=== PATIENT | male | born 1970 | race Caucasian/White ===

== ENCOUNTER 2017-01-21 16:02 | Emergency (ER) | payer OTHER ==
[~2017-01-21] VITALS: Ht 167.6 cm; Wt 75.0 kg
[~2017-01-21 16:02] MED LIST: BACT2OIN TOP; FOLI1 PO; LORTA5 PO; MULT-65 PO; THIA100T PO; ZOLP10TA3 PO
[2017-01-21 16:03] VITALS: BP 125/89; PULSE 101; RESP 15; TEMP 98.1; O2SAT 99
[2017-01-21] MEDS ORDERED: HYDR-4107 PO (16:27)
[2017-01-21] MEDS ORDERED: ZOLP10TA3 PO (16:27)
[2017-01-21] MEDS ORDERED: MULT-65 PO (16:27)
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
[2017-01-21] MEDS ORDERED: PROCHLORPERAZINE MALEATE 10 MG TAB PO ONE (16:30)
[2017-01-21] MEDS ORDERED: diphenhydrAMINE HCL 50 MG CAP PO ONE (16:30)
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
== END 2017-01-21 17:31 | disposition home or self-care (01) ==
LOC: NEPD 16:02
DX: G44.309 Post-traumatic headache, unspecified, not intractable (principal)
CPT/HCPCS: 70450; 72125; 99284; Q0163; Q0164

== ENCOUNTER 2017-12-10 11:57 | Inpatient (IN) | payer SELFPAY ==
[2017-12-10] VITALS (15 sets, daily range): BP systolic 132–178; BP diastolic 76–110; PULSE 93–113; RESP 14–32; TEMP 97.8–98; O2SAT 92–100
[~2017-12-10] VITALS: Ht 170.2 cm; Wt 78.0 kg
[~2017-12-10 11:57] MED LIST changes: -BACT2OIN TOP; +CHLO10CA5 PO; -FOLI1 PO; +FOLI1TAB6 PO; +HYDR-4107 PO; -LORTA5 PO; +POTA1TAB4 PO; +THIA100 PO; -THIA100T PO
[2017-12-10] MEDS ORDERED: SODIUM CHLOR 0.9% 1000 ML INJ 1,000 ML IV SCH (13:13)
[2017-12-10] MEDS: FAMOTIDINE 20 MG/2 ML VIAL IV PUSH ONE ×2 (13:15→13:32)
[2017-12-10] MEDS ORDERED: ONDANSETRON HCL 4 MG/2 ML VIAL IVP ONE (13:15)
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
[2017-12-10 13:31] LABS: AUTOMATED NEUTROPHIL # 5.6 TH/MM3 (1.8-7.7); BASOPHIL # 0.1 TH/MM3 (0-0.2); BASOPHIL % 0.9 % (0.0-2.0); EOSINOPHIL # 0.1 TH/MM3 (0-0.4); EOSINOPHIL % 1.3 % (0.0-4.0); HEMATOCRIT 37.3 % (39.0-51.0); LYMPH % 17.2 % (9.0-44.0); LYMPHOCYTE # 1.4 TH/MM3 (1.0-4.8); MEAN CELL VOLUME 80.3 FL (80.0-100.0); MEAN CORPUSCULAR HEMOGLOBIN 25.8 PG (27.0-34.0); MEAN CORPUSCULAR HGB CONC 32.2 % (32.0-36.0); MEAN PLATELET VOLUME 6.9 FL (7.0-11.0); MONO % 11.1 % (0.0-8.0); MONOCYTE # 0.9 TH/MM3 (0-0.9); NEUT % 69.5 % (16.0-70.0); PLATELET COUNT 216 TH/MM3 (150-450); RED BLOOD COUNT 4.65 MIL/MM3 (4.50-5.90); RED CELL DISTRIBUTION WIDTH 19.7 % (11.6-17.2)
[2017-12-10] MEDS: SODIUM CHLORIDE 0.9% FLUSH 10 ML FLUSH IV FLUSH PRN ×2 (13:31→16:49)
[2017-12-10 13:37] LABS: BILIRUBIN, URINE NEG (NEG); BLOOD, URINE NEG (NEG); GLUCOSE,URINE NEG (NEG); KETONE, URINE NEG (NEG); NITRITE,URINE NEG (NEG); URINE COLOR LIGHT-YELLOW (YELLW/STRAW); URINE LEUKOCYTE ESTERASE NEG (NEG)
[2017-12-10] MEDS ORDERED: LIDOCAINE HCL 1% PF 30 ML VIAL ONE (13:41)
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
[2017-12-10 13:43] LABS: INTERNATIONAL NORMALIZED RATIO 1.1 RATIO; PROTHROMBIN TIME - PATIENT 11.1 SEC (9.8-11.6)
[2017-12-10] MEDS ORDERED: LIDOCAINE HCL 1% 50 ML VIAL INFIL ONE (13:45)
[2017-12-10] MEDS ORDERED: MORPHINE SULFATE 4 MG/ML INJ IV PUSH ONE ×2 (13:45→15:00)
[2017-12-10 13:47] LABS: ALBUMIN 4.2 GM/DL (3.4-5.0); ALT (GPT) 72 U/L (12-78); AST (GOT) 125 U/L (15-37); BLOOD UREA NITROGEN 4 MG/DL (7-18); CALCIUM 8.7 MG/DL (8.5-10.1); CHLORIDE 105 MEQ/L (98-107); CREATININE 0.81 MG/DL (0.60-1.30); GLOMERULAR FILTRATION RATE 102 ML/MIN (>89); GLUCOSE,RANDOM 108 MG/DL (74-106); SODIUM (NA) 142 MEQ/L (136-145)
[2017-12-10 13:50] LABS: ALKALINE PHOSPHATASE 142 U/L (45-117); TOTAL BILIRUBIN ADULT 0.4 MG/DL (0.2-1.0); TOTAL PROTEIN 8.6 GM/DL (6.4-8.2)
[2017-12-10] MEDS ORDERED: MIDAZOLAM HCL 2 MG/2 ML VIAL IV PUSH ONE (14:00)
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
[2017-12-10] MEDS ORDERED: IOHEXOL 350 MG/ML 10 ML VIAL (for RAD DIAG) IVCONTRAST ONE (15:11)
--- NOTE | 2017-12-10 15:16 | RADRPT ---
EXAM DATE/TIME: 12/10/2017 14:30 [facility] COMPARISON: RIBS RIGHT(W PA CXR MIN 3VWS), December 10, 2017, 13:23. INDICATIONS : Post chest tube placement. MEDICAL HISTORY : None. SURGICAL HISTORY : None. ENCOUNTER: Subsequent ACUITY: 1 day PAIN SCORE: 8/10 LOCATION: Bilateral chest FINDINGS: The exam demonstrates a large bore chest tube in place on the right. There has been reinflation of th e right lung. The heart is normal in size. The left lung is clear. There are multiple old rib fracture seen on the right. There is possible acute rib fracture involving the right seventh posterior rib. CONCLUSION: 1. Interval placement of a right-sided chest tube with reinflation of the right lung. Son Finch MD on December 10, 2017 at 14:55 Board Certified Radiologist. This report was verified electronically.
--- NOTE | 2017-12-10 15:25 | RADRPT ---
EXAM DATE/TIME: 12/10/2017 15:05 [facility] COMPARISON: CT ABDOMEN & PELVIS W CONTRAST, October 21, 2017, 22:52. INDICATIONS : Right upper quadrant pain. IV CONTRAST: 100 cc Omnipaque 350 (iohexol) IV ORAL CONTRAST: No oral contrast ingested. RADIATION DOSE: 6.97 CTDIvol (mGy) MEDICAL HISTORY : Hypertension. Gastroesophageal reflux disease. Cardiovascular disease SURGICAL HISTORY : Appendectomy. Right chest tube. ENCOUNTER: Initial ACUITY: 1 day PAIN SCALE: 9/10 LOCATION: Right upper quadrant TECHNIQUE: Volumetric scanning of the abdomen and pelvis was performed. Using automated exposure control and adjustment of the mA and/or kV according to patient size, radiation dose was kept as low as reasonably achievable to obtain optimal diagnostic quality images. DICOM format image data is av ailable electronically for review and comparison. FINDINGS: Chest tube is entering on the right with trace right pneumothorax and subcutaneous emphysema present. Minimal consolidation right base with trace pleural effusion Multiple right rib fractures are noted. The liver is free of focal defects. Moderate fatty replacement is evident. Multiple small gallstones are noted Gallbladder and pancreas are unremarkable Adrenal glands appear normal There is symmetrical renal function There is no free fluid or free air Pelvic contents are unremarkable Review of bone windows reveals multiple right rib fractures. The lumbar spine is intact. The pelvis is intact. CONCLUSION: Chest tube on the right is unchanged as and trace fluid right base Multiple small gallstones Otherwise negative Shree Finch MD FACR on December 10, 2017 at 15:20 Board Certified Radiologist. This report was verified electronically.
[2017-12-10] MEDS ORDERED: HYDROmorphone HCL PF 1 MG/ML VIAL IV PUSH ONE (16:15)
[2017-12-10] MEDS ORDERED: HYDROmorphone HCL PF 2 MG/ML VIAL IV ONE (16:45)
[2017-12-10] MEDS ORDERED: ACETAMINOPHEN/HYDROcodone 325 MG/5 MG TAB PO PRN (20:45)
[2017-12-10] MEDS ORDERED: CHLORHEXIDINE GLUCONATE 2 % 1 PACK (2 CLOTHS) TOP PRN (20:45)
[2017-12-10] MEDS ORDERED: HYDROmorphone HCL PF 2 MG/ML VIAL IV PRN (20:45)
[2017-12-10] MEDS ORDERED: FLUMAZENIL 0.5 MG/5 ML VIAL IV PUSH PRN (20:45)
[2017-12-10] MEDS ORDERED: KETOROLAC TROMETHAMINE 30 MG/ML (IVP) VIAL IVP PRN (20:45)
[2017-12-10] MEDS ORDERED: LORazepam 2 MG/ML VIAL IV PUSH PRN ×4 (20:45)
[2017-12-10] MEDS ORDERED: MISCELLANEOUS NURSING INFORMATION XX SCH (20:45)
[2017-12-10] MEDS ORDERED: LORazepam 2 MG TAB PO PRN (20:45)
[2017-12-10] MEDS ORDERED: LORazepam 1 MG TAB PO PRN (20:45)
[2017-12-10] MEDS: ACETAMINOPHEN/HYDROcodone 325 MG/5 MG TAB PO PRN (21:26)
[2017-12-10] MEDS: METHOCARBAMOL 500 MG TAB PO SCH (22:00)
[2017-12-10] MEDS: MULTIVITAMIN INJ 10 ML, THIAMINE INJ 100 MG, FOLIC ACID INJ 1 MG in SODIUM CHLORID 0.9%... IV SCH (23:45)
[2017-12-11] VITALS (7 sets, daily range): BP systolic 143–175; BP diastolic 97–104; PULSE 84–106; RESP 18–20; TEMP 98.3–99.8; O2SAT 96–100
[2017-12-11] MEDS: KETOROLAC TROMETHAMINE 30 MG/ML (IVP) VIAL IV PUSH SCH ×4 (00:52→17:00)
[2017-12-11] MEDS: MORPHINE SULFATE 4 MG/ML INJ IV PUSH PRN ×3 (00:52→23:26)
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
[2017-12-11] MEDS: ENALAPRILAT 1.25 MG/ML VIAL IV PUSH PRN ×2 (03:40→18:29)
[2017-12-11] MEDS: ACETAMINOPHEN/HYDROcodone 325 MG/5 MG TAB PO PRN ×4 (03:42→21:14)
[2017-12-11] MEDS ORDERED: CHLORHEXIDINE GLUCONATE 2 % 1 PACK (2 CLOTHS) TOP SCH (04:00)
[2017-12-11 05:56] LABS: AUTOMATED NEUTROPHIL # 5.6 TH/MM3 (1.8-7.7); BASOPHIL % 0.6 % (0.0-2.0); EOSINOPHIL # 0.1 TH/MM3 (0-0.4); EOSINOPHIL % 0.8 % (0.0-4.0); HEMATOCRIT 35.4 % (39.0-51.0); HEMOGLOBIN 11.2 GM/DL (13.0-17.0); LYMPH % 17.7 % (9.0-44.0); LYMPHOCYTE # 1.4 TH/MM3 (1.0-4.8); MEAN CORPUSCULAR HEMOGLOBIN 25.7 PG (27.0-34.0); MEAN CORPUSCULAR HGB CONC 31.7 % (32.0-36.0); MONO % 11.3 % (0.0-8.0); MONOCYTE # 0.9 TH/MM3 (0-0.9); NEUT % 69.6 % (16.0-70.0); PLATELET COUNT 170 TH/MM3 (150-450); RED BLOOD COUNT 4.36 MIL/MM3 (4.50-5.90); RED CELL DISTRIBUTION WIDTH 18.9 % (11.6-17.2); WHITE BLOOD COUNT 8.1 TH/MM3 (4.0-11.0)
[2017-12-11] MEDS: METHOCARBAMOL 500 MG TAB PO SCH ×3 (06:02→21:39)
[2017-12-11 06:07] LABS: BICARBONATE 26.2 MEQ/L (21.0-32.0); CALCIUM 8.5 MG/DL (8.5-10.1); CREATININE 0.7 MG/DL (0.60-1.30)
--- NOTE | 2017-12-11 07:39 | RADRPT ---
EXAM DATE/TIME: 12/11/2017 07:20 [facility] COMPARISON: CHEST SINGLE AP, December 10, 2017, 14:30. INDICATIONS : Right pneumothorax. MEDICAL HISTORY : Hypertension. Gastroesophageal reflux disease. Cardiovascular disease. SURGICAL HISTORY : Appendectomy. Chest tube, right. ENCOUNTER: Subsequent ACUITY: 4 - 6 days PAIN SCORE: 4/10 LOCATION: Right chest FINDINGS: Right-sided chest tube is noted and is unchanged in position. No pneumothorax is noted. Bibasilar str eakiness is noted consistent with probable atelectasis and/or infiltrate. The heart is stable. Fractu res of the right rib cage are stable. Fracture of the right distal clavicle is unchanged. CONCLUSION: Bibasilar streakiness consistent with probable atelectasis and/or infiltrate. Minesh Escobar MD on December 11, 2017 at 7:34 Board Certified Radiologist. This report was verified electronically.
[2017-12-11] MEDS: MAGNESIUM HYDROXIDE SUSP 30 ML CUP PO SCH ×2 (09:00→21:00)
[2017-12-11] MEDS ORDERED: POTASSIUM CHLORIDE 20 MEQ CONTROLLED RELEASE TAB PO SCH (09:00)
[2017-12-11] MEDS: DOCUSATE SODIUM 50 MG/SENNA 8.6 MG TAB PO SCH ×2 (09:00→21:39)
[2017-12-11] MEDS ORDERED: POTASSIUM CHLORIDE 20 MEQ CONTROLLED RELEASE TAB PO ONE (09:00)
[2017-12-11] MEDS: LIDOCAINE HCL 5% PATCH T-DERMAL SCH (11:06)
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
[2017-12-11] MEDS: LORazepam 2 MG TAB PO SCH (21:39)
[2017-12-11] MEDS: POTASSIUM CHLORIDE 20 MEQ CONTROLLED RELEASE TAB PO SCH (21:39)
[2017-12-12] VITALS (11 sets, daily range): BP systolic 124–164; BP diastolic 83–101; PULSE 100–131; RESP 17–19; TEMP 98.1–99.7; O2SAT 95–98
[2017-12-12] MEDS: KETOROLAC TROMETHAMINE 30 MG/ML (IVP) VIAL IV PUSH SCH ×5 (00:21→23:49)
[2017-12-12] MEDS: MULTIVITAMIN INJ 10 ML, THIAMINE INJ 100 MG, FOLIC ACID INJ 1 MG in SODIUM CHLORID 0.9%... IV SCH ×2 (00:21→22:45)
[2017-12-12] MEDS: ACETAMINOPHEN/HYDROcodone 325 MG/5 MG TAB PO PRN ×4 (02:37→18:09)
[2017-12-12] MEDS: LORazepam 2 MG TAB PO SCH ×6 (02:38→23:49)
[2017-12-12 04:06] LABS: AUTOMATED NEUTROPHIL # 8.4 TH/MM3 (1.8-7.7); BASOPHIL % 0.4 % (0.0-2.0); EOSINOPHIL # 0.1 TH/MM3 (0-0.4); HEMATOCRIT 36.5 % (39.0-51.0); LYMPH % 6.1 % (9.0-44.0); LYMPHOCYTE # 0.6 TH/MM3 (1.0-4.8); MEAN CELL VOLUME 80.1 FL (80.0-100.0); MEAN CORPUSCULAR HEMOGLOBIN 26.3 PG (27.0-34.0); MEAN CORPUSCULAR HGB CONC 32.8 % (32.0-36.0); MEAN PLATELET VOLUME 7.3 FL (7.0-11.0); MONO % 6.9 % (0.0-8.0); MONOCYTE # 0.7 TH/MM3 (0-0.9); NEUT % 85.6 % (16.0-70.0); PLATELET COUNT 169 TH/MM3 (150-450); RED BLOOD COUNT 4.56 MIL/MM3 (4.50-5.90); RED CELL DISTRIBUTION WIDTH 19.5 % (11.6-17.2); WHITE BLOOD COUNT 9.8 TH/MM3 (4.0-11.0)
[2017-12-12] MEDS: MORPHINE SULFATE 4 MG/ML INJ IV PUSH PRN ×3 (04:16→16:53)
[2017-12-12 04:34] LABS: BICARBONATE 27.4 MEQ/L (21.0-32.0); CALCIUM 8.7 MG/DL (8.5-10.1); CREATININE 0.85 MG/DL (0.60-1.30)
[2017-12-12] MEDS: METHOCARBAMOL 500 MG TAB PO SCH ×3 (05:04→22:43)
[2017-12-12] MEDS: ENALAPRILAT 1.25 MG/ML VIAL IV PUSH PRN (05:09)
--- NOTE | 2017-12-12 06:11 | RADRPT ---
EXAM DATE/TIME: 12/12/2017 05:17 [facility] COMPARISON: CHEST SINGLE AP, December 11, 2017, 7:20. INDICATIONS : Short of breath. MEDICAL HISTORY : Hypertension. Gastroesophageal reflux disease. Cardiovascular disease. SURGICAL HISTORY : Appendectomy. Chest tube, right. ENCOUNTER: Subsequent ACUITY: 4 - 6 days PAIN SCORE: 0/10 LOCATION: Bilateral chest FINDINGS: A single view of the chest demonstrates the lungs to be symmetrically aerated without evidence of mas s, infiltrate or effusion. The cardiomediastinal contours are unremarkable. Stable upper right rib fractures. Chest drainage tube tip remains projected in the medial upper chest. No evidence pneumot horax.. CONCLUSION: Improved aeration of both lungs. No evidence pneumothorax. Giovani James MD on December 12, 2017 at 6:09 Board Certified Radiologist. This report was verified electronically.
[2017-12-12] MEDS: POTASSIUM CHLORIDE 20 MEQ CONTROLLED RELEASE TAB PO SCH ×2 (08:16→20:02)
[2017-12-12] MEDS: DOCUSATE SODIUM 50 MG/SENNA 8.6 MG TAB PO SCH ×2 (08:17→20:03)
[2017-12-12] MEDS: LIDOCAINE HCL 5% PATCH T-DERMAL SCH (08:19)
[2017-12-12] MEDS: MAGNESIUM HYDROXIDE SUSP 30 ML CUP PO SCH ×2 (08:41→20:03)
[2017-12-12] MEDS: VALPROIC ACID 250 MG CAP PO SCH ×2 (09:51→20:02)
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
[2017-12-12] MEDS: ZOLPIDEM TARTRATE 10 MG TAB PO PRN (22:43)
[2017-12-13] VITALS (8 sets, daily range): BP systolic 118–133; BP diastolic 61–87; PULSE 115–132; RESP 18–20; TEMP 98–100; O2SAT 94–97
[2017-12-13] MEDS: LORazepam 2 MG TAB PO SCH ×4 (03:54→15:11)
[2017-12-13] MEDS: ACETAMINOPHEN/HYDROcodone 325 MG/5 MG TAB PO PRN (03:55)
[2017-12-13] MEDS: KETOROLAC TROMETHAMINE 30 MG/ML (IVP) VIAL IV PUSH SCH ×3 (06:10→16:43)
[2017-12-13] MEDS: METHOCARBAMOL 500 MG TAB PO SCH ×3 (06:10→22:51)
--- NOTE | 2017-12-13 07:33 | RADRPT ---
EXAM DATE/TIME: 12/13/2017 06:33 [facility] COMPARISON: CHEST SINGLE AP, December 12, 2017, 5:17. INDICATIONS : Short of breath, evaluate right pneumothorax and chest tube MEDICAL HISTORY : Hypertension. Gastroesophageal reflux disease. Cardiovascular disease. SURGICAL HISTORY : Appendectomy. Chest tube, right ENCOUNTER: Subsequent ACUITY: 4 - 6 days PAIN SCORE: 0/10 LOCATION: Bilateral chest FINDINGS: Portable upright expiratory view of the chest demonstrates a normal-sized cardiac silhouette. A right chest tube remains present. There is a small right apical pneumothorax. Air space opacity is present in the right lower lung zone. Left lung demonstrates no concerning abnormality. CONCLUSION: There is a small right pneumothorax with right chest tube in place. Atelectasis versus consolidation is present at the right lung base. Ehsan Sparks MD on December 13, 2017 at 7:30 Board Certified Radiologist. This report was verified electronically.
[2017-12-13] MEDS: DOCUSATE SODIUM 50 MG/SENNA 8.6 MG TAB PO SCH ×2 (07:49→22:52)
[2017-12-13] MEDS: VALPROIC ACID 250 MG CAP PO SCH ×2 (07:49→22:51)
[2017-12-13] MEDS: POTASSIUM CHLORIDE 20 MEQ CONTROLLED RELEASE TAB PO SCH ×2 (07:50→22:52)
[2017-12-13] MEDS: MAGNESIUM HYDROXIDE SUSP 30 ML CUP PO SCH ×2 (07:50→21:00)
[2017-12-13] MEDS: LIDOCAINE HCL 5% PATCH T-DERMAL SCH (07:53)
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
[2017-12-13] MEDS: ACETAMINOPHEN/HYDROcodone 325 MG/10 MG TAB PO PRN ×2 (09:30→13:22)
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
--- NOTE | 2017-12-13 14:37 | RADRPT ---
EXAM DATE/TIME: 12/13/2017 14:18 [facility] COMPARISON: CHEST SINGLE AP, December 13, 2017, 6:33. INDICATIONS : Post chest tube removal. MEDICAL HISTORY : Hypertension. Gastroesophageal reflux disease. Cardiovascular disease. SURGICAL HISTORY : Appendectomy. Chest tube, right. ENCOUNTER: Subsequent ACUITY: 1 day PAIN SCORE: 1/10 LOCATION: Right chest FINDINGS: There has been slight interval worsening right sided pneumothorax status post removal of right chest tube which now measures 2.6 cm in the apex. Patchy opacity is noted within the right mid and lower juan f ng field. Small right pleural effusion is noted. The heart is stable. CONCLUSION: 1. Slight interval worsening right-sided pneumothorax status post removal of right chest tube which n ow measures 2.6 cm in apex. 2. Patchy opacity within the right mid and lower lung field. 3. Small right pleural effusion. Minesh Escobar MD on December 13, 2017 at 14:32 Board Certified Radiologist. This report was verified electronically.
[2017-12-13] MEDS ORDERED: LORazepam 1 MG TAB PO PRN (16:45)
[2017-12-13] MEDS ORDERED: LORazepam 2 MG/ML VIAL IV PUSH PRN ×2 (16:45)
[2017-12-13] MEDS ORDERED: FLUMAZENIL 0.5 MG/5 ML VIAL IV PUSH PRN (16:45)
[2017-12-13] MEDS: LORazepam 2 MG/ML VIAL IV PUSH PRN ×2 (17:49→19:42)
--- NOTE | 2017-12-13 17:58 | PD.RAD ---
Post Procedure Progress Note Pre Procedure Diagnosis: (1) Multiple fractures of ribs of right side (2) Pneumothorax on right Post Procedure Diagnosis: (1) Multiple fractures of ribs of right side (2) Pneumothorax on right Procedure Date: Dec 13, 2017 Supervising Radiologist: Son Finch Estimated blood loss: none Anesthesia: Local, Conscious Sedation Plan of Activity Patient to Unit: Nursing Unit Patient Condition: Fair Additional Comments: New right chest tube placed from an anterior approach. Complete reinflation of the right lung Tube in good position See PACS Report for procedural detail/treatment Son Finch MD Dec 13, 2017 17:58
--- NOTE | 2017-12-13 18:15 | RADRPT ---
EXAM DATE/TIME: 12/13/2017 17:04 [facility] COMPARISON: No previous studies available for comparison. INDICATIONS : Patient with pneumothorax in need of chest tube placement. MEDICAL HISTORY : Alcohol abuse, GERD SURGICAL HISTORY : Appendectomy, Tonsillectomy, Pilonidal cyst removal ENCOUNTER: Initial ACUITY: 3 days PAIN SCORE: 0/10 FLUORO TIME: 1.9 minutes IMAGE SERIES: 1 SEDATION TIME: 30 minutes MEDICATION(S): 1.) 50 mcg fentanyl (Sublimaze) IV 2.) 2 mg lorazepam (Ativan) IV DEVICE(S): 1.) 10 Vietnamese non-locking catheter Merlyn PROCEDURE : 1. Fluoroscopically guided chest tube placement. 2. Conscious sedation with continuous EKG and oximetry monitoring. The risks, benefits and alternatives to the procedure were explained to the patient and his mother an d verbal and written consent was obtained. The site was prepped in sterile fashion. Full sterile te chnique was used, including cap, mask, sterile gloves and gown and a large sterile sheet. Hand hygie ne and 2% chlorhexidine and/or betadine/alcohol prep was utilized per protocol for cutaneous antiseps is. The skin and subcutaneous tissues were infiltrated with local anesthetic solution. With fluoroscopic guidance the chest was punctured between the first and second interspace and the pr escribed catheter was placed in the lung apex. Wall suction was applied. Post procedure images demon strate satisfactory position of the tube. The catheter was sutured in place and a Percu-Stay was deanna lied. There was immediate reinflation of the right lung. Conscious sedation was performed with the prescribed dosages and duration as above in the presence of an independent trained radiology nurse to assist in the monitoring of the patient. EKG and oximetry remained stable throughout the procedure. The patient tolerated the procedure well and there were n o complications. The patient was sent to post anesthesia recovery in stable condition. CONCLUSION: Uncomplicated chest tube placement as above. Son Finch MD on December 13, 2017 at 18:12 Board Certified Radiologist. This report was verified electronically.
[2017-12-13] MEDS: ZOLPIDEM TARTRATE 10 MG TAB PO PRN (22:51)
[2017-12-13] MEDS: HALOPERIDOL LACTATE 5 MG/ML AMP IM PRN (23:06)
[2017-12-14] VITALS (10 sets, daily range): BP systolic 135–157; BP diastolic 65–93; PULSE 89–146; RESP 18–31; TEMP 98–100.9; O2SAT 92–97
[2017-12-14] MEDS: LORazepam 2 MG/ML VIAL IV PUSH PRN ×10 (00:58→18:27)
[2017-12-14] MEDS: HALOPERIDOL LACTATE 5 MG/ML AMP IM PRN ×5 (01:38→21:10)
[2017-12-14] MEDS: SODIUM CHLORIDE 0.9% FLUSH 10 ML FLUSH IV FLUSH PRN ×2 (02:07→03:20)
[2017-12-14] MEDS: LORazepam 2 MG TAB PO PRN ×2 (04:26→08:21)
[2017-12-14] MEDS: METHOCARBAMOL 500 MG TAB PO SCH ×3 (06:38→21:09)
--- NOTE | 2017-12-14 07:31 | RADRPT ---
EXAM DATE/TIME: 12/14/2017 06:35 [facility] COMPARISON: No previous studies available for comparison. INDICATIONS : Short of breath, evaluate right side pneumothorax and chest tube MEDICAL HISTORY : Gastroesophageal reflux disease. pneumothorax, alcohol abuse SURGICAL HISTORY : Appendectomy. Tonsillectomy. ENCOUNTER: Subsequent ACUITY: 4 - 6 days PAIN SCORE: Non-responsive. LOCATION: Right chest FINDINGS: A small right-sided chest tube is noted in the right apex. No pneumothorax is noted. Right lung infil trate is noted. Small right pleural effusion is noted. The heart is prominent. The left lung is clear . Right rib fractures are stable. CONCLUSION: No pneumothorax status post placement of right chest tube. Right lung infiltrate and small right pleu ral effusion are noted. Minesh Escobar MD on December 14, 2017 at 7:28 Board Certified Radiologist. This report was verified electronically.
[2017-12-14] MEDS: MAGNESIUM HYDROXIDE SUSP 30 ML CUP PO SCH ×2 (08:21→21:00)
[2017-12-14] MEDS: VALPROIC ACID 250 MG CAP PO SCH ×2 (08:21→23:34)
[2017-12-14] MEDS: DOCUSATE SODIUM 50 MG/SENNA 8.6 MG TAB PO SCH ×2 (08:21→21:00)
[2017-12-14] MEDS: POTASSIUM CHLORIDE 20 MEQ CONTROLLED RELEASE TAB PO SCH ×2 (08:22→21:00)
[2017-12-14] MEDS: LIDOCAINE HCL 5% PATCH T-DERMAL SCH (08:22)
[2017-12-14] MEDS: LACTATED RINGER'S 1000 ML INJ 1,000 ML IV SCH (13:24)
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
[2017-12-14 15:54] LABS: BASOPHIL # 0.1 TH/MM3 (0-0.2); BASOPHIL % 0.3 % (0.0-2.0); EOSINOPHIL # 0.1 TH/MM3 (0-0.4); EOSINOPHIL % 0.2 % (0.0-4.0); HEMATOCRIT 33.6 % (39.0-51.0); HEMOGLOBIN 10.5 GM/DL (13.0-17.0); LYMPH % 2.7 % (9.0-44.0); LYMPHOCYTE # 0.6 TH/MM3 (1.0-4.8); MEAN CELL VOLUME 79.1 FL (80.0-100.0); MEAN CORPUSCULAR HEMOGLOBIN 24.7 PG (27.0-34.0); MEAN CORPUSCULAR HGB CONC 31.2 % (32.0-36.0); MEAN PLATELET VOLUME 8.1 FL (7.0-11.0); MONO % 13.3 % (0.0-8.0); MONOCYTE # 2.9 TH/MM3 (0-0.9); NEUT % 83.5 % (16.0-70.0); PLATELET COUNT 188 TH/MM3 (150-450); RED BLOOD COUNT 4.25 MIL/MM3 (4.50-5.90); RED CELL DISTRIBUTION WIDTH 19.8 % (11.6-17.2); WHITE BLOOD COUNT 21.6 TH/MM3 (4.0-11.0)
[2017-12-14 16:15] LABS: BICARBONATE 22.1 MEQ/L (21.0-32.0); CALCIUM 8.2 MG/DL (8.5-10.1); CREATININE 0.86 MG/DL (0.60-1.30)
[2017-12-14 17:20] LABS: BANDS 6 % (0-6); CORRECTED NUCLEATED RBC 1 /100 WBC (0-0); DOHLE BODIES PRESENT (NONE SEEN); LYMPHOCYTES 2 % (9-44); METAMYELOCYTES 1 % (0-1); MONOCYTES 8 % (0-8); NEUTROPHIL # MANUAL DIFF 19.4 TH/MM3 (1.8-7.7); NUCLEATED RED BLOOD CELL 1 (0-0); POLYS (SEG NEUTROPHILS) 83 % (16-70); TOXIC GRANULATION 1+ (NORMAL)
[2017-12-14] MEDS ORDERED: MIDAZOLAM HCL 5 MG/ML VIAL (1 ML) ONE (19:40)
--- NOTE | 2017-12-14 19:46 | RADRPT ---
EXAM DATE/TIME: 12/14/2017 18:44 [facility] COMPARISON: CHEST SINGLE AP, December 13, 2017, 14:18. INDICATIONS : Shortness of breath. MEDICAL HISTORY : Gastroesophageal reflux disease. Pneumothorax. alcohol abuse. SURGICAL HISTORY : Appendectomy. Tonsillectomy. ENCOUNTER: Initial ACUITY: 1 day PAIN SCORE: Non-responsive. LOCATION: Bilateral chest FINDINGS: Small caliber right chest tube without significant pneumothorax. There is a right-sided greater than left basilar air space disease. Heart size enlarged. CONCLUSION: 1. Right chest tube without pneumothorax. Airspace disease similar to December 13. George Cannon MD on December 14, 2017 at 19:42 Board Certified Radiologist. This report was verified electronically.
[2017-12-14] MEDS ORDERED: MIDAZOLAM HCL 5 MG/ML VIAL (1 ML) IV PUSH ONE (20:00)
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
--- NOTE | 2017-12-14 20:36 | RADRPT ---
EXAM DATE/TIME: 12/14/2017 20:01 [facility] COMPARISON: No previous studies available for comparison. INDICATIONS : Right side chest tube placement. MEDICAL HISTORY : Hypertension. Gastroesophageal reflux disease. Cardiovascular disease. SURGICAL HISTORY : Appendectomy. Chest tube, right. ENCOUNTER: Subsequent ACUITY: 1 day PAIN SCORE: Non-responsive. LOCATION: Bilateral chest FINDINGS: Small caliber right chest tube has been removed. Larger right caliber chest tube is in place. No sign ificant pneumothorax identified. Bilateral airspace disease cular right greater the left is unchanged . Cardiomegaly. No pneumothorax. CONCLUSION: 1. Right chest tube without significant pneumothorax. Bilateral airspace disease unchanged. George Cannon MD on December 14, 2017 at 20:33 Board Certified Radiologist. This report was verified electronically.
--- NOTE | 2017-12-14 21:01 | MP ---
cc: Maria R Josue MD DATE OF OPERATION: 12/14/2017 PREOPERATIVE DIAGNOSES: Dysfunctional right chest tube, pleural effusion and pneumothorax. POSTOPERATIVE DIAGNOSES: Dysfunctional right chest tube, pleural effusion and pneumothorax. OPERATIVE PROCEDURE: Right chest tube placement. SURGEON: Maria R Josue MD ANESTHESIA: 1% Xylocaine, and 2 mg of Versed IV. ESTIMATED BLOOD LOSS: Minimal. INDICATIONS FOR PROCEDURE: This patient is a 47-year-old male who was on the floor, was in delirium tremens. Through the afternoon, the patient became progressively apparently more restless and he was given numerous doses of Ativan according to CIWA protocol. I was asked by the nurse practitioner to see the patient for he was getting worse. On my arrival, the patient is short of breath. I helped him sit to the side of the bed with his mom and on exam he had decreased breath sounds on the right side. The previously placed pigtail catheter by radiology is now not any more secured and it is essentially sitting in the dressing. I do not know how long it has been there. Breath sounds on the right side are quite decreased. I asked the patient be immediately transferred to the ICU which occurred. The patient is now in surgical ICU. The patient was prepped and draped in usual fashion, and area infiltrated with about 20 mL of 1% Xylocaine in the 6th intercostal space anterior axillary line. The patient was given 2 mg of Versed and then held in position. About 1 cm incision was made in the anterior axillary line previously infiltrated the area and deepened. The 20-Divehi chest tube was placed over the right diaphragm secured in place with 0 silk and connected to the Pleur-evac. During the placement of chest tube a macias of air is obtained and lung reinflates except for the apex. The patient tolerated the procedure well. A followup chest CT will be performed tomorrow to see how the rest of the lung looks considering the patient's injury is several weeks old. Likely he will need decortication of the lung for chances are his pleural effusion is a loculated firm gelatinous in the form of an empyema. Maria R Josue MD SJ/rt , 08:20 PM , 09:00 PM MAXX
[2017-12-14] MEDS: SODIUM CHLOR 0.9% 1000 ML INJ 1,000 ML IV SCH (21:06)
[2017-12-14] MEDS: cefTRIAXone INJ 1,000 MG in SODIUM CHLORIDE 0.9% INJ 100 ML IV SCH (21:07)
[2017-12-14] MEDS: VANCOMYCIN INJ 1,000 MG in SODIUM CHLOR 0.9% 250 ML INJ 250 ML IV SCH (21:09)
[2017-12-14] MEDS: MORPHINE SULFATE 4 MG/ML INJ IV PUSH PRN (22:48)
[2017-12-15] VITALS (12 sets, daily range): BP systolic 138–157; BP diastolic 81–111; PULSE 108–122; RESP 19–32; TEMP 97.4–100.8; O2SAT 96–100
[2017-12-15] MEDS: LACTATED RINGER'S 1000 ML INJ 1,000 ML IV SCH (02:20)
[2017-12-15] MEDS: MORPHINE SULFATE 4 MG/ML INJ IV PUSH PRN ×2 (04:47→08:18)
--- NOTE | 2017-12-15 04:56 | RADRPT ---
EXAM DATE/TIME: 12/15/2017 03:29 [facility] COMPARISON: CHEST SINGLE AP, December 14, 2017, 20:01. INDICATIONS : Post chest tube, right side. Short of breath. MEDICAL HISTORY : Hypertension. Gastroesophageal reflux disease. Cardiovascular disease. SURGICAL HISTORY : Appendectomy. Chest tube, right. ENCOUNTER: Subsequent ACUITY: 4 - 6 days PAIN SCORE: Non-responsive. LOCATION: Bilateral chest FINDINGS: A single AP portable view of the chest was obtained and again demonstrates the right-sided chest tube with the tip projected over the lateral right lung base without change. There is no pneumothorax. Blue zy airspace disease remains throughout the right lung. The heart size is at the upper limits of nikia l. Left lung appears clear. Multiple right rib fractures are again noted. There is a right clavicular fracture as well. CONCLUSION: 1. The right-sided chest tube remains in place along the lateral right lung base with no pneumothorax . 2. Hazy airspace disease remains throughout the right lung. Tommie Hall MD on December 15, 2017 at 4:51 Board Certified Radiologist. This report was verified electronically.
[2017-12-15] MEDS: METHOCARBAMOL 500 MG TAB PO SCH ×3 (06:00→20:53)
[2017-12-15] MEDS: SODIUM CHLOR 0.9% 1000 ML INJ 1,000 ML IV SCH (08:14)
[2017-12-15] MEDS: VANCOMYCIN INJ 1,000 MG in SODIUM CHLOR 0.9% 250 ML INJ 250 ML IV SCH ×2 (08:16→20:52)
[2017-12-15] MEDS: POTASSIUM CHLORIDE 20 MEQ CONTROLLED RELEASE TAB PO SCH ×2 (08:17→20:53)
[2017-12-15] MEDS: HALOPERIDOL LACTATE 5 MG/ML AMP IM PRN ×2 (08:17→23:37)
[2017-12-15] MEDS: MAGNESIUM HYDROXIDE SUSP 30 ML CUP PO SCH ×2 (08:17→20:54)
[2017-12-15] MEDS: DOCUSATE SODIUM 50 MG/SENNA 8.6 MG TAB PO SCH ×2 (08:17→20:53)
[2017-12-15] MEDS: VALPROIC ACID 250 MG CAP PO SCH ×2 (08:17→20:53)
[2017-12-15] MEDS: LIDOCAINE HCL 5% PATCH T-DERMAL SCH (08:18)
[2017-12-15] MEDS: cefTRIAXone INJ 1,000 MG in SODIUM CHLORIDE 0.9% INJ 100 ML IV SCH ×2 (08:18→20:51)
--- NOTE | 2017-12-15 09:39 | RADRPT ---
EXAM DATE/TIME: 12/15/2017 09:05 [facility] COMPARISON: CHEST SINGLE AP, December 15, 2017, 3:29. INDICATIONS : Abnormal chest x-ray. RADIATION DOSE: 9.59 CTDIvol (mGy) MEDICAL HISTORY : Seizures. Hypertension. SURGICAL HISTORY : Appendectomy. chest tube placement ENCOUNTER: Initial ACUITY: 1 day PAIN SCALE: 7/10 LOCATION: Right chest TECHNIQUE: Volumetric scanning of the chest was performed. Using automated exposure control and adjustment of t he mA and/or kV according to patient size, radiation dose was kept as low as reasonably achievable to obtain optimal diagnostic quality images. DICOM format image data is available electronically for r eview and comparison. Follow-up recommendations for detected pulmonary nodules are based at a minimum on nodule size and pa tient risk factors according to Fleischner Society Guidelines. FINDINGS: There is a moderate-sized right pleural fluid collection which contains multiple air bubbles. This ra ises the possibility of infection. Clinical correlation is recommended. Right basilar consolidation i s noted consistent with atelectasis and/or infiltrate. A right-sided chest tube is noted. The left juan f ng is clear. The heart is prominent. Coronary artery calcifications are noted. Multiple right-sided r ib fractures are noted. CONCLUSION: 1. Moderate-sized right pleural fluid collection which contains multiple air bubbles raising the poss ibility of infection. Clinical correlation is recommended. 2. Right basilar consolidation consistent with atelectasis and/or infiltrate. 3. Cardiomegaly. 4. Coronary artery calcifications. Minesh Escobar MD on December 15, 2017 at 9:31 Board Certified Radiologist. This report was verified electronically.
[2017-12-15] MEDS: ACETAMINOPHEN/HYDROcodone 325 MG/10 MG TAB PO PRN ×2 (13:40→20:54)
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
[2017-12-15] MEDS: SODIUM CHLORIDE 0.9% FLUSH 10 ML FLUSH IV FLUSH PRN (20:54)
[2017-12-16] VITALS (15 sets, daily range): BP systolic 138–165; BP diastolic 77–103; PULSE 106–126; RESP 14–26; TEMP 98.9–99.5; O2SAT 95–100
[2017-12-16] MEDS: ENALAPRILAT 1.25 MG/ML VIAL IV PUSH PRN (00:12)
[2017-12-16] MEDS: MORPHINE SULFATE 4 MG/ML INJ IV PUSH PRN ×4 (00:13→21:43)
[2017-12-16] MEDS: ACETAMINOPHEN/HYDROcodone 325 MG/10 MG TAB PO PRN ×3 (02:53→23:44)
[2017-12-16] MEDS: METHOCARBAMOL 500 MG TAB PO SCH ×3 (05:29→21:42)
[2017-12-16] MEDS: HALOPERIDOL LACTATE 5 MG/ML AMP IM PRN ×2 (05:30→23:44)
[2017-12-16 06:24] LABS: AUTOMATED NEUTROPHIL # 12.3 TH/MM3 (1.8-7.7); BASOPHIL # 0.1 TH/MM3 (0-0.2); BASOPHIL % 0.5 % (0.0-2.0); EOSINOPHIL # 0.3 TH/MM3 (0-0.4); EOSINOPHIL % 1.8 % (0.0-4.0); HEMATOCRIT 31.1 % (39.0-51.0); HEMOGLOBIN 9.8 GM/DL (13.0-17.0); LYMPHOCYTE # 1.1 TH/MM3 (1.0-4.8); MEAN CELL VOLUME 79.3 FL (80.0-100.0); MEAN CORPUSCULAR HEMOGLOBIN 25.1 PG (27.0-34.0); MEAN CORPUSCULAR HGB CONC 31.6 % (32.0-36.0); MEAN PLATELET VOLUME 8.1 FL (7.0-11.0); MONO % 14.9 % (0.0-8.0); MONOCYTE # 2.4 TH/MM3 (0-0.9); NEUT % 75.8 % (16.0-70.0); PLATELET COUNT 194 TH/MM3 (150-450); RED BLOOD COUNT 3.92 MIL/MM3 (4.50-5.90); RED CELL DISTRIBUTION WIDTH 20.1 % (11.6-17.2); WHITE BLOOD COUNT 16.2 TH/MM3 (4.0-11.0)
[2017-12-16 07:25] LABS: ALBUMIN 2.5 GM/DL (3.4-5.0); ALKALINE PHOSPHATASE 207 U/L (45-117); ALT (GPT) 41 U/L (12-78); AST (GOT) 91 U/L (15-37); BICARBONATE 23.3 MEQ/L (21.0-32.0); BLOOD UREA NITROGEN 10 MG/DL (7-18); CALCIUM 8.3 MG/DL (8.5-10.1); CHLORIDE 102 MEQ/L (98-107); CREATININE 0.71 MG/DL (0.60-1.30); GLOMERULAR FILTRATION RATE 118 ML/MIN (>89); GLUCOSE,RANDOM 77 MG/DL (74-106); SODIUM (NA) 138 MEQ/L (136-145); TOTAL BILIRUBIN ADULT 0.6 MG/DL (0.2-1.0); TOTAL PROTEIN 6.9 GM/DL (6.4-8.2)
[2017-12-16 07:39] LABS: BANDS 10 % (0-6); LYMPHOCYTES 7 % (9-44); METAMYELOCYTES 3 % (0-1); MONOCYTES 16 % (0-8); MYELOCYTES 1 % (0-0); POLYS (SEG NEUTROPHILS) 60 % (16-70); TOXIC GRANULATION 1+ (NORMAL); TOXIC VACUOLATION PRESENT (NONE SEEN)
[2017-12-16] MEDS: DOCUSATE SODIUM 50 MG/SENNA 8.6 MG TAB PO SCH ×2 (08:02→21:42)
[2017-12-16] MEDS: MAGNESIUM HYDROXIDE SUSP 30 ML CUP PO SCH ×2 (08:03→21:42)
[2017-12-16] MEDS: cefTRIAXone INJ 1,000 MG in SODIUM CHLORIDE 0.9% INJ 100 ML IV SCH ×2 (08:03→21:42)
[2017-12-16] MEDS: POTASSIUM CHLORIDE 20 MEQ CONTROLLED RELEASE TAB PO SCH ×2 (08:03→21:42)
[2017-12-16] MEDS: VALPROIC ACID 250 MG CAP PO SCH ×2 (08:03→21:42)
[2017-12-16] MEDS: LIDOCAINE HCL 5% PATCH T-DERMAL SCH (08:04)
[2017-12-16] MEDS: VANCOMYCIN INJ 1,000 MG in SODIUM CHLOR 0.9% 250 ML INJ 250 ML IV SCH ×2 (09:22→22:00)
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
[2017-12-17] VITALS (11 sets, daily range): BP systolic 115–166; BP diastolic 68–96; PULSE 88–124; RESP 9–22; TEMP 98.1–100.3; O2SAT 93–100
[2017-12-17] MEDS: MORPHINE SULFATE 4 MG/ML INJ IV PUSH PRN ×4 (03:44→16:48)
[2017-12-17 04:39] LABS: AUTOMATED NEUTROPHIL # 15.4 TH/MM3 (1.8-7.7); BASOPHIL # 0.1 TH/MM3 (0-0.2); BASOPHIL % 0.6 % (0.0-2.0); EOSINOPHIL # 0.3 TH/MM3 (0-0.4); EOSINOPHIL % 1.5 % (0.0-4.0); HEMATOCRIT 32.9 % (39.0-51.0); HEMOGLOBIN 10.5 GM/DL (13.0-17.0); LYMPH % 7.6 % (9.0-44.0); LYMPHOCYTE # 1.5 TH/MM3 (1.0-4.8); MEAN CELL VOLUME 78.4 FL (80.0-100.0); MEAN CORPUSCULAR HEMOGLOBIN 24.9 PG (27.0-34.0); MEAN CORPUSCULAR HGB CONC 31.7 % (32.0-36.0); MEAN PLATELET VOLUME 7.9 FL (7.0-11.0); MONO % 12.6 % (0.0-8.0); MONOCYTE # 2.5 TH/MM3 (0-0.9); NEUT % 77.7 % (16.0-70.0); PLATELET COUNT 274 TH/MM3 (150-450); RED CELL DISTRIBUTION WIDTH 20.4 % (11.6-17.2); WHITE BLOOD COUNT 19.8 TH/MM3 (4.0-11.0)
[2017-12-17 05:08] LABS: ALBUMIN 2.4 GM/DL (3.4-5.0); AST (GOT) 141 U/L (15-37); BICARBONATE 25.6 MEQ/L (21.0-32.0); BLOOD UREA NITROGEN 5 MG/DL (7-18); CALCIUM 8.7 MG/DL (8.5-10.1); CHLORIDE 98 MEQ/L (98-107); CREATININE 0.69 MG/DL (0.60-1.30); GLOMERULAR FILTRATION RATE 122 ML/MIN (>89); GLUCOSE,RANDOM 85 MG/DL (74-106); SODIUM (NA) 135 MEQ/L (136-145)
[2017-12-17 05:09] LABS: ALT (GPT) 69 U/L (12-78)
[2017-12-17 05:11] LABS: ALKALINE PHOSPHATASE 354 U/L (45-117); TOTAL BILIRUBIN ADULT 0.6 MG/DL (0.2-1.0); TOTAL PROTEIN 7.2 GM/DL (6.4-8.2)
[2017-12-17 05:33] LABS: BANDS 7 % (0-6); BASOPHILS 1 % (0-2); LYMPHOCYTES 7 % (9-44); METAMYELOCYTES 8 % (0-1); MONOCYTES 7 % (0-8); NEUTROPHIL # MANUAL DIFF 16.8 TH/MM3 (1.8-7.7); POLYS (SEG NEUTROPHILS) 70 % (16-70)
[2017-12-17 05:34] LABS: TOXIC GRANULATION 2+ (NORMAL)
[2017-12-17] MEDS: METHOCARBAMOL 500 MG TAB PO SCH ×3 (05:55→22:00)
--- NOTE | 2017-12-17 06:12 | RADRPT ---
EXAM DATE/TIME: 12/17/2017 04:16 [place] COMPARISON: CHEST SINGLE AP, December 15, 2017, 3:29. CT THORAX W/O CONTRAST, December 15, 2017, 9:05. INDICATIONS : Short of breath. MEDICAL HISTORY : Hypertension. Gastroesophageal reflux disease. Cardiovascular disease. SURGICAL HISTORY : Appendectomy. Chest tube, right. ENCOUNTER: Subsequent ACUITY: 1 week PAIN SCORE: 0/10 LOCATION: Bilateral chest FINDINGS: A single view of the chest demonstrates decreasing pleural-parenchymal density right lung. Right-side d chest tube seen with side hole outside the thoracic cage. No pneumothorax. There is some volume los s on the right. Left lung clear. Heart normal size. The cardiomediastinal contours are unremarkable. Old right rib fractures and clavicle fracture. CONCLUSION: 1. Chest tube is external to the chest and should be withdrawn. 2. No pneumothorax in the right. Tigre Harley MD on December 17, 2017 at 6:08 Board Certified Radiologist. This report was verified electronically.
[2017-12-17] MEDS: VALPROIC ACID 250 MG CAP PO SCH (08:55)
[2017-12-17] MEDS: cefTRIAXone INJ 1,000 MG in SODIUM CHLORIDE 0.9% INJ 100 ML IV SCH ×2 (08:55→21:00)
[2017-12-17] MEDS: DOCUSATE SODIUM 50 MG/SENNA 8.6 MG TAB PO SCH ×3 (08:56→21:00)
[2017-12-17] MEDS: POTASSIUM CHLORIDE 20 MEQ CONTROLLED RELEASE TAB PO SCH ×3 (08:56→21:00)
[2017-12-17] MEDS: ONDANSETRON HCL 4 MG/2 ML VIAL IV PUSH PRN ×2 (08:56→16:48)
[2017-12-17] MEDS: SODIUM CHLORIDE 0.9% FLUSH 10 ML FLUSH IV FLUSH PRN ×2 (08:57→16:48)
[2017-12-17] MEDS: MAGNESIUM HYDROXIDE SUSP 30 ML CUP PO SCH ×2 (08:58→21:00)
[2017-12-17] MEDS: LIDOCAINE HCL 5% PATCH T-DERMAL SCH (08:58)
[2017-12-17] MEDS ORDERED: Vancomycin Consult Pharmacy 1 EA OTHER SCH (09:30)
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
[2017-12-17] MEDS ORDERED: fentaNYL CITRATE 250 MCG/5 ML AMP ONE (11:24)
[2017-12-17] MEDS ORDERED: ONDANSETRON HCL 4 MG/2 ML VIAL ONE (11:24)
[2017-12-17] MEDS: VANCOMYCIN INJ 1,000 MG in SODIUM CHLOR 0.9% 250 ML INJ 250 ML IV SCH ×2 (11:30→23:45)
[2017-12-17] MEDS ORDERED: LIDOCAINE HCL 1% PF 5 ML SYRINGE OTHER ONE (12:00)
[2017-12-17] MEDS ORDERED: PHENYLEPHRINE HCL 10 MG/ML VIAL IV ONE (12:00)
[2017-12-17] MEDS ORDERED: DEXAMETHASONE SOD PHOS 4 MG/ML VIAL IV ONE (12:00)
[2017-12-17] MEDS ORDERED: PROPOFOL 200 MG/20 ML AMP IV ONE (12:00)
[2017-12-17] MEDS ORDERED: NEOSTIGMINE 5 MG/5 ML SYRINGE IV PUSH ONE (12:00)
[2017-12-17] MEDS ORDERED: ONDANSETRON HCL 4 MG/2 ML VIAL IV ONE (12:00)
[2017-12-17] MEDS ORDERED: ROCURONIUM INJ 50 MG/5 ML SYRINGE IV PUSH ONE (12:00)
[2017-12-17] MEDS ORDERED: LACTATED RINGER'S 1000 ML INJ 1,000 ML IV ONE (12:00)
[2017-12-17] MEDS ORDERED: LABETALOL HCL 100 MG/20 ML VIAL IV ONE (12:00)
[2017-12-17] MEDS ORDERED: GLYCOPYRROLATE 1 MG/5 ML SYRINGE IV PUSH ONE (12:00)
[2017-12-17] MEDS ORDERED: NORMOSOL R INJ 1,000 ML IV ONE (12:00)
[2017-12-17] MEDS ORDERED: ePHEDrine/NS 25 MG/5 ML SYRINGE IV ONE (12:00)
[2017-12-17] MEDS ORDERED: PHENYLEPH/NS 1000 MCG/10 ML SYR IV ONE (12:00)
[2017-12-17] MEDS ORDERED: GENTAMICIN SULFATE 80 MG/2 ML VIAL ONE (12:01)
[2017-12-17] MEDS ORDERED: BUPIVACAINE HCL PF 0.25% 30 ML VIAL ONE (12:05)
[2017-12-17] MEDS ORDERED: MIDAZOLAM HCL 2 MG/2 ML VIAL ONE (14:00)
[2017-12-17] MEDS: QUEtiapine FUMARATE 25 MG TAB PO SCH ×2 (14:00→22:00)
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
--- NOTE | 2017-12-17 19:51 | RADRPT ---
EXAM DATE/TIME: 12/17/2017 18:51 [facility] COMPARISON: CT THORAX W/O CONTRAST, December 15, 2017, 9:05. INDICATIONS : Evaluate chest tube placement MEDICAL HISTORY : Hypertension. Gastroesophageal reflux disease. Cardiovascular disease. SURGICAL HISTORY : Appendectomy. Chest tube, right ENCOUNTER: Subsequent ACUITY: 1 week PAIN SCORE: 0/10 LOCATION: Right chest FINDINGS: There is interval placement of 3 right-sided chest tubes with a small residual right pneumothorax. Ri ght greater than left airspace disease. Right-sided pleural thickening. Air in right chest wall. Card iomegaly. CONCLUSION: 3 right-sided chest tubes have been placed with small residual right pneumothorax. Right greater the left airspace disease. George Cannon MD on December 17, 2017 at 19:46 Board Certified Radiologist. This report was verified electronically.
[2017-12-17] MEDS ORDERED: ENOXAPARIN SODIUM 40 MG/0.4 ML SYRINGE SQ SCH (20:00)
--- NOTE | 2017-12-17 20:29 | MP ---
cc: Maria R Josue MD DATE OF OPERATION: 12/17/2017 PREOPERATIVE DIAGNOSIS: Empyema of the right chest, sepsis. POSTOPERATIVE DIAGNOSIS: Empyema of the right chest, sepsis. OPERATIVE PROCEDURE: Right thoracoscopy, followed by posterolateral thoracotomy, evacuation of the empyema, decortication of the right lung. SURGEON: Maria R Josue MD ANESTHESIA: General. ESTIMATED BLOOD LOSS: 300 mL. DESCRIPTION OF PROCEDURE: The patient prepped and draped in usual fashion and right chest is entered through a small incision made into sixth intercostal space and posterior axillary line. The chest trocar is placed and then camera inserted. First, a straight and then 30-degree camera is placed and upon entrance of the chest, it is noted that patient has a huge area in the posterior chest occupying most of the middle and lower lobe boundaries, which is filled with yellowish, ugly-looking purulent material, which is for the most part very thick. There is a peel on the lung and lung is unable to expand, lung is pushed anteriorly. The right upper lobe seems to be inflating okay. The rest of them are not doing anything. At this point, it is clear that this can not be done thoracoscopically. Therefore, thoracoscope is removed and then incision is made, deepened down through the musculature of the chest wall down to the level of the sixth rib. The chest is now opened over the sixth rib and entered. A Tuffier retractor is placed and very gradually, chest is opened. Area examined. Right lower lobe is covered with purulent, thick yellowish material and middle lobe is pushed forward in the same way. There is some liquid purulent material. This is suctioned off. The rest is firm, gelatinous and stuck to the structures. Very gradually, dissection is started from the top down and middle lobe is released by peeling off of this thick yellowish peel. This is continued down to the lower lobe. Lower lobe is stuck to the diaphragm. It is freed up all the way down to the inferior pulmonary ligament, which is divided almost to the level of the inferior pulmonary vein to allow for easy mobilization of the lobe and cleaning it off. This is then done by very carefully creating the plane over the pleura and not entering the lung tissue and piercing it. Material was now removed from the lung surface, which allows the lung to expand and down from the chest wall. This is about a liter of purulent material, which is foul smelling. Cultures of course sent. Chest is now irrigated with copious amounts of saline and the lung is allowed to expand. Lung expands readily and fills up the chest cavity. Lung is now collapsed again and 3 chest tubes are placed, anterior apical, posterior basal and a third posterior sulcus, 36 [place] chest tube. Chest is now irrigated with 3 L of warm saline and then closed. Ribs are approximated with #2 Prolene [id number] x 3 and prior to closing the ribs, patient is straightened out and lung is allowed to inflate under direct vision. A second #1 Vicryl is used in a running fashion for latissimus dorsi and serratus muscle as well as subcutaneous tissue in layers and then finally, skin is closed with yina. The patient tolerated the procedure well, taken out of operating room in stable condition and at the end of the procedure, the chest x-ray is taken, which reveals full expansion of the lung. MD POLI Arellano/GIOVANNI , 08:03 PM , 08:28 PM
[2017-12-17] MEDS: ZOLPIDEM TARTRATE 10 MG TAB PO PRN (21:33)
[2017-12-17] MEDS: HALOPERIDOL LACTATE 5 MG/ML AMP IM PRN (21:34)
[2017-12-17] MEDS ORDERED: PHARMACY ORDERED LAB ONE (21:45)
[2017-12-17] MEDS: ACETAMINOPHEN/HYDROcodone 325 MG/10 MG TAB PO PRN (23:47)
[2017-12-18] VITALS (13 sets, daily range): BP systolic 126–166; BP diastolic 55–94; PULSE 105–124; RESP 13–22; TEMP 98–98.8; O2SAT 96–100
[2017-12-18] MEDS: MORPHINE SULFATE 4 MG/ML INJ IV PUSH PRN ×5 (02:43→18:49)
[2017-12-18 04:26] LABS: AUTOMATED NEUTROPHIL # 26.8 TH/MM3 (1.8-7.7); BASOPHIL # 0.1 TH/MM3 (0-0.2); BASOPHIL % 0.3 % (0.0-2.0); HEMATOCRIT 28.1 % (39.0-51.0); LYMPH % 4.7 % (9.0-44.0); LYMPHOCYTE # 1.5 TH/MM3 (1.0-4.8); MEAN CELL VOLUME 77.3 FL (80.0-100.0); MEAN CORPUSCULAR HEMOGLOBIN 24.8 PG (27.0-34.0); MEAN CORPUSCULAR HGB CONC 32.1 % (32.0-36.0); MEAN PLATELET VOLUME 7.6 FL (7.0-11.0); MONO % 9.1 % (0.0-8.0); MONOCYTE # 2.8 TH/MM3 (0-0.9); NEUT % 85.9 % (16.0-70.0); PLATELET COUNT 352 TH/MM3 (150-450); RED BLOOD COUNT 3.64 MIL/MM3 (4.50-5.90); RED CELL DISTRIBUTION WIDTH 20.4 % (11.6-17.2); WHITE BLOOD COUNT 31.3 TH/MM3 (4.0-11.0)
[2017-12-18 04:51] LABS: ALBUMIN 2.1 GM/DL (3.4-5.0); AST (GOT) 72 U/L (15-37); BLOOD UREA NITROGEN 7 MG/DL (7-18); CALCIUM 8.1 MG/DL (8.5-10.1); CHLORIDE 99 MEQ/L (98-107); CREATININE 0.78 MG/DL (0.60-1.30); GLOMERULAR FILTRATION RATE 106 ML/MIN (>89); GLUCOSE,RANDOM 118 MG/DL (74-106); SODIUM (NA) 134 MEQ/L (136-145)
[2017-12-18 04:53] LABS: ALT (GPT) 47 U/L (12-78)
[2017-12-18 04:54] LABS: ALKALINE PHOSPHATASE 304 U/L (45-117); TOTAL BILIRUBIN ADULT 0.5 MG/DL (0.2-1.0); TOTAL PROTEIN 6.5 GM/DL (6.4-8.2)
--- NOTE | 2017-12-18 05:46 | RADRPT ---
EXAM DATE/TIME: 12/18/2017 04:20 [facility] COMPARISON: CHEST SINGLE AP, December 17, 2017, 18:51. INDICATIONS : Short of breath. MEDICAL HISTORY : Hypertension. Gastroesophageal reflux disease. Cardiovascular disease. SURGICAL HISTORY : Appendectomy. Chest tube, right. ENCOUNTER: Subsequent ACUITY: 1 week PAIN SCORE: Non-responsive. LOCATION: Bilateral chest FINDINGS: A single view of the chest demonstrates pleural-parenchymal density throughout the right lung. 3 righ t-sided chest tubes without definite pneumothorax. Multiple right-sided rib fractures. CONCLUSION: Decreasing pleural-parenchymal density right chest. No pneumothorax. Tigre Harley MD on December 18, 2017 at 5:42 Board Certified Radiologist. This report was verified electronically.
[2017-12-18] MEDS: METHOCARBAMOL 500 MG TAB PO SCH ×3 (05:47→21:47)
[2017-12-18] MEDS: ACETAMINOPHEN/HYDROcodone 325 MG/10 MG TAB PO PRN ×3 (05:47→20:00)
[2017-12-18] MEDS: QUEtiapine FUMARATE 25 MG TAB PO SCH ×2 (06:47→14:26)
[2017-12-18 07:05] LABS: BANDS 12 % (0-6); BLASTS 1 % (0-0); LYMPHOCYTES 4 % (9-44); METAMYELOCYTES 5 % (0-1); MONOCYTES 7 % (0-8); MYELOCYTES 3 % (0-0); NEUTROPHIL # MANUAL DIFF 27.5 TH/MM3 (1.8-7.7); POLYS (SEG NEUTROPHILS) 68 % (16-70); TOXIC GRANULATION 1+ (NORMAL)
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
[2017-12-18] MEDS: MAGNESIUM HYDROXIDE SUSP 30 ML CUP PO SCH ×2 (09:00→21:00)
[2017-12-18] MEDS: cefTRIAXone INJ 1,000 MG in SODIUM CHLORIDE 0.9% INJ 100 ML IV SCH ×2 (09:11→21:45)
[2017-12-18] MEDS: ONDANSETRON HCL 4 MG/2 ML VIAL IV PUSH PRN ×2 (09:16→18:48)
[2017-12-18] MEDS: DOCUSATE SODIUM 50 MG/SENNA 8.6 MG TAB PO SCH ×2 (09:16→21:46)
[2017-12-18] MEDS: LIDOCAINE HCL 5% PATCH T-DERMAL SCH (09:17)
[2017-12-18] MEDS: VANCOMYCIN 1,000 MG/NS 250 ML IV SCH ×4 (09:18→14:27)
[2017-12-18] MEDS: POTASSIUM CHLORIDE 20 MEQ CONTROLLED RELEASE TAB PO SCH ×2 (09:18→21:46)
[2017-12-18] MEDS: HALOPERIDOL LACTATE 5 MG/ML AMP IV PRN ×2 (11:34→18:48)
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
[2017-12-18] MEDS: SODIUM CHLORIDE 0.9% FLUSH 10 ML FLUSH IV FLUSH PRN ×2 (14:26→18:49)
[2017-12-18] MEDS ORDERED: PHARMACY ORDERED LAB ONE (15:45)
[2017-12-18] MEDS: QUEtiapine FUMARATE 100 MG TAB PO SCH (21:46)
[2017-12-18] MEDS: ENOXAPARIN SODIUM 30 MG/0.3 ML SYRINGE SQ SCH (21:47)
[2017-12-19] VITALS (13 sets, daily range): BP systolic 100–158; BP diastolic 57–72; PULSE 94–120; RESP 11–20; TEMP 98.2–98.9; O2SAT 96–100
[2017-12-19] MEDS: ACETAMINOPHEN/HYDROcodone 325 MG/10 MG TAB PO PRN ×2 (01:05→06:47)
[2017-12-19] MEDS: VANCOMYCIN 1,000 MG/NS 250 ML IV SCH ×6 (04:11→15:48)
[2017-12-19 05:18] LABS: AUTOMATED NEUTROPHIL # 17.2 TH/MM3 (1.8-7.7); BASOPHIL # 0.1 TH/MM3 (0-0.2); BASOPHIL % 0.4 % (0.0-2.0); EOSINOPHIL # 0.1 TH/MM3 (0-0.4); EOSINOPHIL % 0.6 % (0.0-4.0); HEMATOCRIT 29.3 % (39.0-51.0); LYMPH % 9.8 % (9.0-44.0); LYMPHOCYTE # 2.1 TH/MM3 (1.0-4.8); MEAN CELL VOLUME 79.7 FL (80.0-100.0); MEAN CORPUSCULAR HEMOGLOBIN 24.5 PG (27.0-34.0); MEAN CORPUSCULAR HGB CONC 30.7 % (32.0-36.0); MEAN PLATELET VOLUME 7.9 FL (7.0-11.0); MONO % 8.2 % (0.0-8.0); MONOCYTE # 1.8 TH/MM3 (0-0.9); PLATELET COUNT 445 TH/MM3 (150-450); RED BLOOD COUNT 3.67 MIL/MM3 (4.50-5.90); RED CELL DISTRIBUTION WIDTH 20.3 % (11.6-17.2); WHITE BLOOD COUNT 21.3 TH/MM3 (4.0-11.0)
[2017-12-19 05:45] LABS: AST (GOT) 59 U/L (15-37); BICARBONATE 27.2 MEQ/L (21.0-32.0); BLOOD UREA NITROGEN 7 MG/DL (7-18); CALCIUM 8.1 MG/DL (8.5-10.1); CHLORIDE 103 MEQ/L (98-107); CREATININE 0.71 MG/DL (0.60-1.30); GLOMERULAR FILTRATION RATE 118 ML/MIN (>89); GLUCOSE,RANDOM 74 MG/DL (74-106); SODIUM (NA) 139 MEQ/L (136-145)
[2017-12-19 05:48] LABS: ALKALINE PHOSPHATASE 196 U/L (45-117); ALT (GPT) 39 U/L (12-78); TOTAL BILIRUBIN ADULT 0.4 MG/DL (0.2-1.0); TOTAL PROTEIN 6.7 GM/DL (6.4-8.2)
--- NOTE | 2017-12-19 06:10 | RADRPT ---
EXAM DATE/TIME: 12/19/2017 04:59 [facility] COMPARISON: CHEST SINGLE AP, December 18, 2017, 4:20. INDICATIONS : Shortness of breath. MEDICAL HISTORY : Seizures. Hypertension SURGICAL HISTORY : Appendectomy. Chest tube placement ENCOUNTER: Subsequent ACUITY: 1 week PAIN SCORE: 3/10 LOCATION: Bilateral chest FINDINGS: A single view of the chest demonstrates persistent right lung density. Multiple right-sided chest tub es without definite pneumothorax. Multiple right-sided rib fractures and right clavicle fracture. Car diomegaly. Left lung is clear. CONCLUSION: Stable chest. Tigre Harley MD on December 19, 2017 at 6:08 Board Certified Radiologist. This report was verified electronically.
[2017-12-19 06:12] LABS: BANDS 8 % (0-6); BASOPHILS 1 % (0-2); LYMPHOCYTES 8 % (9-44); METAMYELOCYTES 1 % (0-1); MONOCYTES 6 % (0-8); MYELOCYTES 2 % (0-0); NEUTROPHIL # MANUAL DIFF 17.9 TH/MM3 (1.8-7.7); POLYS (SEG NEUTROPHILS) 72 % (16-70); PROMYELOCYTES 1 % (0-0); STOMATOCYTES 1+ (NORMAL); TOXIC GRANULATION 1+ (NORMAL)
[2017-12-19] MEDS: METHOCARBAMOL 500 MG TAB PO SCH ×3 (06:46→21:30)
[2017-12-19] MEDS: QUEtiapine FUMARATE 25 MG TAB PO SCH ×2 (08:00→13:16)
[2017-12-19] MEDS: POTASSIUM CHLORIDE 20 MEQ CONTROLLED RELEASE TAB PO SCH ×2 (08:37→21:30)
[2017-12-19] MEDS: MAGNESIUM HYDROXIDE SUSP 30 ML CUP PO SCH ×2 (08:37→21:30)
[2017-12-19] MEDS: DOCUSATE SODIUM 50 MG/SENNA 8.6 MG TAB PO SCH ×2 (08:37→21:30)
[2017-12-19] MEDS: cefTRIAXone INJ 1,000 MG in SODIUM CHLORIDE 0.9% INJ 100 ML IV SCH ×2 (08:38→21:29)
[2017-12-19] MEDS: ENOXAPARIN SODIUM 30 MG/0.3 ML SYRINGE SQ SCH ×2 (08:38→21:29)
[2017-12-19] MEDS: LIDOCAINE HCL 5% PATCH T-DERMAL SCH (08:40)
[2017-12-19] MEDS: ACETAMINOPHEN 1000 MG/100 ML 100 ML IV SCH ×3 (10:42→21:29)
[2017-12-19] MEDS: KETOROLAC TROMETHAMINE 30 MG/ML (IVP) VIAL IV PUSH SCH ×2 (12:28→17:20)
[2017-12-19] MEDS: GABAPENTIN 300 MG CAP PO SCH ×2 (13:07→17:20)
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
[2017-12-19] MEDS: QUEtiapine FUMARATE 100 MG TAB PO SCH (21:30)
[2017-12-19] MEDS: SODIUM CHLORIDE 0.9% FLUSH 10 ML FLUSH IV FLUSH PRN (21:30)
[2017-12-20] VITALS: BP 110/66; PULSE 89; RESP 20; TEMP 98.3; O2SAT 100
[2017-12-20] MEDS: VANCOMYCIN 1,000 MG/NS 250 ML IV SCH ×4 (00:34→08:38)
[2017-12-20] MEDS: KETOROLAC TROMETHAMINE 30 MG/ML (IVP) VIAL IV PUSH SCH ×4 (00:34→17:12)
[2017-12-20 03:48] LABS: AUTOMATED NEUTROPHIL # 13.4 TH/MM3 (1.8-7.7); BASOPHIL # 0.2 TH/MM3 (0-0.2); BASOPHIL % 0.9 % (0.0-2.0); EOSINOPHIL # 0.3 TH/MM3 (0-0.4); EOSINOPHIL % 1.6 % (0.0-4.0); HEMATOCRIT 26.4 % (39.0-51.0); HEMOGLOBIN 8.2 GM/DL (13.0-17.0); LYMPH % 11.1 % (9.0-44.0); LYMPHOCYTE # 1.9 TH/MM3 (1.0-4.8); MEAN CELL VOLUME 78.8 FL (80.0-100.0); MEAN CORPUSCULAR HEMOGLOBIN 24.3 PG (27.0-34.0); MEAN CORPUSCULAR HGB CONC 30.9 % (32.0-36.0); MEAN PLATELET VOLUME 7.4 FL (7.0-11.0); MONO % 7.5 % (0.0-8.0); MONOCYTE # 1.3 TH/MM3 (0-0.9); NEUT % 78.9 % (16.0-70.0); PLATELET COUNT 483 TH/MM3 (150-450); RED BLOOD COUNT 3.35 MIL/MM3 (4.50-5.90); RED CELL DISTRIBUTION WIDTH 20.5 % (11.6-17.2)
[2017-12-20 04:00] VITALS: BP 110/65; PULSE 72; RESP 16; TEMP 97.4; O2SAT 100
[2017-12-20 04:21] LABS: ALBUMIN 1.7 GM/DL (3.4-5.0); AST (GOT) 104 U/L (15-37); BICARBONATE 26.7 MEQ/L (21.0-32.0); BLOOD UREA NITROGEN 5 MG/DL (7-18); CALCIUM 7.7 MG/DL (8.5-10.1); CHLORIDE 109 MEQ/L (98-107); CREATININE 0.55 MG/DL (0.60-1.30); GLOMERULAR FILTRATION RATE 159 ML/MIN (>89); GLUCOSE,RANDOM 87 MG/DL (74-106); SODIUM (NA) 142 MEQ/L (136-145)
[2017-12-20 04:22] LABS: ALT (GPT) 58 U/L (12-78)
[2017-12-20 04:24] LABS: ALKALINE PHOSPHATASE 278 U/L (45-117); TOTAL BILIRUBIN ADULT 0.3 MG/DL (0.2-1.0)
[2017-12-20] MEDS: ACETAMINOPHEN 1000 MG/100 ML 100 ML IV SCH (04:55)
[2017-12-20] MEDS: METHOCARBAMOL 500 MG TAB PO SCH ×3 (06:00→21:11)
[2017-12-20 06:59] LABS: BANDS 11 % (0-6); LYMPHOCYTES 12 % (9-44); METAMYELOCYTES 2 % (0-1); MONOCYTES 3 % (0-8); MYELOCYTES 3 % (0-0); NEUTROPHIL # MANUAL DIFF 14.3 TH/MM3 (1.8-7.7); POLYS (SEG NEUTROPHILS) 68 % (16-70); TOXIC GRANULATION 1+ (NORMAL)
--- NOTE | 2017-12-20 07:17 | RADRPT ---
EXAM DATE/TIME: 12/20/2017 06:32 [facility] COMPARISON: CHEST SINGLE AP, December 19, 2017, 4:59. INDICATIONS : Short of breath MEDICAL HISTORY : Hypertension. seizures SURGICAL HISTORY : Appendectomy. chest tube ENCOUNTER: Subsequent ACUITY: 1 week PAIN SCORE: Non-responsive. LOCATION: Bilateral chest FINDINGS: A single view of the chest demonstrates 3 right-sided chest tubes without significant pneumothorax. B ilateral mostly basilar airspace disease. CONCLUSION: 1. Stable right-sided chest tubes without pneumothorax right greater than left basilar airspace opaci ty. George Cannon MD on December 20, 2017 at 7:14 Board Certified Radiologist. This report was verified electronically.
[2017-12-20 08:00] VITALS: BP 109/70; PULSE 70; RESP 19; TEMP 98.3; O2SAT 100
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
[2017-12-20] MEDS: GABAPENTIN 300 MG CAP PO SCH ×3 (08:39→17:11)
[2017-12-20] MEDS: ENOXAPARIN SODIUM 30 MG/0.3 ML SYRINGE SQ SCH ×2 (08:39→21:13)
[2017-12-20] MEDS: POLYETHYLENE GLYCOL 17 GM PKG PO SCH (08:39)
[2017-12-20] MEDS: POTASSIUM CHLORIDE 20 MEQ CONTROLLED RELEASE TAB PO SCH (08:39)
[2017-12-20] MEDS: DOCUSATE SODIUM 50 MG/SENNA 8.6 MG TAB PO SCH ×2 (08:39→21:00)
[2017-12-20] MEDS: LIDOCAINE HCL 5% PATCH T-DERMAL SCH (08:39)
[2017-12-20] MEDS: QUEtiapine FUMARATE 25 MG TAB PO SCH ×2 (08:45→15:47)
[2017-12-20] MEDS: cefTRIAXone INJ 1,000 MG in SODIUM CHLORIDE 0.9% INJ 100 ML IV SCH ×2 (10:50→21:12)
[2017-12-20 12:00] VITALS: BP 119/66; PULSE 83; RESP 17; TEMP 98.5; O2SAT 96
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
[2017-12-20 16:00] VITALS: BP 121/71; PULSE 89; RESP 17; TEMP 97.8; O2SAT 95
[2017-12-20] MEDS: MORPHINE SULFATE 4 MG/ML INJ IV PUSH PRN (17:11)
[2017-12-20 20:00] VITALS: BP 174/104; PULSE 94; RESP 18; TEMP 98.6; O2SAT 95
[2017-12-20] MEDS: QUEtiapine FUMARATE 100 MG TAB PO SCH (21:10)
[2017-12-20] MEDS: HALOPERIDOL LACTATE 5 MG/ML AMP IV PRN (22:22)
[2017-12-21] VITALS: BP 155/80; PULSE 109; RESP 18; TEMP 99.2; O2SAT 96
[2017-12-21] MEDS: MORPHINE SULFATE 4 MG/ML INJ IV PUSH PRN ×4 (00:13→23:14)
[2017-12-21] MEDS: HALOPERIDOL LACTATE 5 MG/ML AMP IV PRN ×2 (02:45→22:09)
[2017-12-21 04:11] LABS: AUTOMATED NEUTROPHIL # 17.4 TH/MM3 (1.8-7.7); BASOPHIL # 0.3 TH/MM3 (0-0.2); BASOPHIL % 1.3 % (0.0-2.0); EOSINOPHIL # 0.2 TH/MM3 (0-0.4); EOSINOPHIL % 1.1 % (0.0-4.0); HEMOGLOBIN 8.2 GM/DL (13.0-17.0); LYMPH % 10.9 % (9.0-44.0); LYMPHOCYTE # 2.4 TH/MM3 (1.0-4.8); MEAN CELL VOLUME 76.9 FL (80.0-100.0); MEAN CORPUSCULAR HEMOGLOBIN 24.3 PG (27.0-34.0); MEAN CORPUSCULAR HGB CONC 31.5 % (32.0-36.0); MEAN PLATELET VOLUME 7.4 FL (7.0-11.0); MONO % 5.9 % (0.0-8.0); MONOCYTE # 1.3 TH/MM3 (0-0.9); NEUT % 80.8 % (16.0-70.0); PLATELET COUNT 628 TH/MM3 (150-450); RED BLOOD COUNT 3.37 MIL/MM3 (4.50-5.90); RED CELL DISTRIBUTION WIDTH 20.5 % (11.6-17.2); WHITE BLOOD COUNT 21.6 TH/MM3 (4.0-11.0)
[2017-12-21] MEDS: METHOCARBAMOL 500 MG TAB PO SCH ×3 (06:34→22:06)
[2017-12-21] MEDS ORDERED: PHARMACY ORDERED LAB ONE (07:45)
[2017-12-21 08:00] VITALS: BP 126/73; PULSE 105; RESP 19; TEMP 97.8; O2SAT 96
[2017-12-21] MEDS: POLYETHYLENE GLYCOL 17 GM PKG PO SCH (08:06)
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
[2017-12-21] MEDS: LIDOCAINE HCL 5% PATCH T-DERMAL SCH (08:59)
[2017-12-21] MEDS: cefTRIAXone INJ 1,000 MG in SODIUM CHLORIDE 0.9% INJ 100 ML IV SCH ×2 (09:03→22:06)
[2017-12-21] MEDS: ENOXAPARIN SODIUM 30 MG/0.3 ML SYRINGE SQ SCH ×2 (09:03→22:12)
[2017-12-21] MEDS: DOCUSATE SODIUM 50 MG/SENNA 8.6 MG TAB PO SCH ×2 (09:06→22:06)
[2017-12-21] MEDS: POTASSIUM CHLORIDE 20 MEQ CONTROLLED RELEASE TAB PO SCH (09:07)
[2017-12-21] MEDS: GABAPENTIN 300 MG CAP PO SCH ×3 (09:07→18:09)
[2017-12-21] MEDS: QUEtiapine FUMARATE 25 MG TAB PO SCH ×2 (09:18→15:26)
[2017-12-21 12:00] VITALS: BP 130/73; PULSE 109; RESP 20; TEMP 97.1; O2SAT 95
--- NOTE | 2017-12-21 12:04 | RADRPT ---
EXAM DATE/TIME: 12/21/2017 11:18 [facility] COMPARISON: CHEST SINGLE AP, December 20, 2017, 6:32. INDICATIONS : Post chest tube removal. MEDICAL HISTORY : Hypertension. Gastroesophageal reflux disease. Cardiovascular disease. SURGICAL HISTORY : None. ENCOUNTER: Subsequent ACUITY: 1 week PAIN SCORE: 0/10 LOCATION: Bilateral chest FINDINGS: 2 right-sided chest tubes remain without significant pneumothorax. Patchy airspace disease remains in the right lung. No new infiltrate. CONCLUSION: 1. Removal of one of the right chest tubes with 2 remaining. No significant pneumothorax. George Cannon MD on December 21, 2017 at 12:01 Board Certified Radiologist. This report was verified electronically.
[2017-12-21 16:00] VITALS: BP 136/76; PULSE 108; RESP 19; TEMP 98.5; O2SAT 95
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
[2017-12-21 20:00] VITALS: BP 117/70; PULSE 121; RESP 20; TEMP 97.8; O2SAT 95
[2017-12-21] MEDS: QUEtiapine FUMARATE 100 MG TAB PO SCH (22:06)
[2017-12-22] VITALS: BP 127/75; PULSE 122; RESP 20; O2SAT 93
--- NOTE | 2017-12-22 03:36 | RADRPT ---
EXAM DATE/TIME: 12/22/2017 02:57 [facility] COMPARISON: CHEST SINGLE AP, December 21, 2017, 11:18. INDICATIONS : Eval pneumothorax. MEDICAL HISTORY : Hypertension. Gastroesophageal reflux disease. Cardiovascular disease. SURGICAL HISTORY : Appendectomy. chest tube placement. ENCOUNTER: Subsequent ACUITY: 1 week PAIN SCORE: Non-responsive. LOCATION: Bilateral chest FINDINGS: A single view of the chest demonstrates the 2 right-sided chest tubes are in good position. I'll see any significant residual pleural air. Left lung is clear.. The cardiomediastinal contours are unrema rkable. Osseous structures are intact. CONCLUSION: 2 right-sided chest tubes are in excellent position. Felton Bentley MD on December 22, 2017 at 3:34 Board Certified Radiologist. This report was verified electronically.
[2017-12-22] MEDS: METHOCARBAMOL 500 MG TAB PO SCH ×3 (05:57→20:03)
[2017-12-22 08:00] VITALS: BP 119/58; PULSE 102; RESP 19; TEMP 98.5; O2SAT 93
[2017-12-22] MEDS: LIDOCAINE HCL 5% PATCH T-DERMAL SCH (09:20)
[2017-12-22] MEDS: cefTRIAXone INJ 1,000 MG in SODIUM CHLORIDE 0.9% INJ 100 ML IV SCH (09:22)
[2017-12-22] MEDS: DOCUSATE SODIUM 50 MG/SENNA 8.6 MG TAB PO SCH ×2 (09:25→20:04)
[2017-12-22] MEDS: POLYETHYLENE GLYCOL 17 GM PKG PO SCH (09:25)
[2017-12-22] MEDS: ENOXAPARIN SODIUM 30 MG/0.3 ML SYRINGE SQ SCH ×2 (09:25→20:08)
[2017-12-22] MEDS: POTASSIUM CHLORIDE 20 MEQ CONTROLLED RELEASE TAB PO SCH (09:25)
[2017-12-22] MEDS: GABAPENTIN 300 MG CAP PO SCH ×3 (09:26→17:57)
[2017-12-22] MEDS: QUEtiapine FUMARATE 25 MG TAB PO SCH ×2 (09:34→13:49)
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
[2017-12-22 12:00] VITALS: BP 113/66; PULSE 109; RESP 19; TEMP 100.1; O2SAT 93
[2017-12-22 15:47] VITALS: BP 105/69; PULSE 111; RESP 19; TEMP 98.9; O2SAT 92
[2017-12-22 20:00] VITALS: BP 126/70; PULSE 112; RESP 17; TEMP 98.3; O2SAT 97
[2017-12-22] MEDS: QUEtiapine FUMARATE 100 MG TAB PO SCH (20:04)
[2017-12-22] MEDS: HALOPERIDOL LACTATE 5 MG/ML AMP IV PRN (21:32)
[2017-12-22] MEDS: MORPHINE SULFATE 4 MG/ML INJ IV PUSH PRN (21:32)
[2017-12-23 00:20] VITALS: BP 115/80; PULSE 119; RESP 17; TEMP 98.8; O2SAT 95
[2017-12-23] MEDS: MORPHINE SULFATE 4 MG/ML INJ IV PUSH PRN ×2 (01:35→21:36)
[2017-12-23] MEDS: HALOPERIDOL LACTATE 5 MG/ML AMP IV PRN ×2 (01:35→13:16)
[2017-12-23] MEDS: METHOCARBAMOL 500 MG TAB PO SCH ×3 (04:14→21:30)
[2017-12-23 08:00] VITALS: BP 118/66; PULSE 99; RESP 19; TEMP 99.2; O2SAT 94
[2017-12-23] MEDS: DOCUSATE SODIUM 50 MG/SENNA 8.6 MG TAB PO SCH ×2 (09:49→21:00)
[2017-12-23] MEDS: GABAPENTIN 300 MG CAP PO SCH ×3 (09:49→18:13)
[2017-12-23] MEDS: POLYETHYLENE GLYCOL 17 GM PKG PO SCH (09:49)
[2017-12-23] MEDS: POTASSIUM CHLORIDE 20 MEQ CONTROLLED RELEASE TAB PO SCH (09:49)
[2017-12-23] MEDS: LIDOCAINE HCL 5% PATCH T-DERMAL SCH (09:50)
[2017-12-23] MEDS: ENOXAPARIN SODIUM 30 MG/0.3 ML SYRINGE SQ SCH ×2 (09:50→21:30)
[2017-12-23 09:53] LABS: AUTOMATED NEUTROPHIL # 13.6 TH/MM3 (1.8-7.7); BASOPHIL # 0.1 TH/MM3 (0-0.2); BASOPHIL % 0.6 % (0.0-2.0); EOSINOPHIL # 0.3 TH/MM3 (0-0.4); EOSINOPHIL % 1.5 % (0.0-4.0); HEMATOCRIT 27.1 % (39.0-51.0); HEMOGLOBIN 8.7 GM/DL (13.0-17.0); LYMPH % 12.5 % (9.0-44.0); LYMPHOCYTE # 2.3 TH/MM3 (1.0-4.8); MEAN CELL VOLUME 76.8 FL (80.0-100.0); MEAN CORPUSCULAR HEMOGLOBIN 24.8 PG (27.0-34.0); MEAN CORPUSCULAR HGB CONC 32.3 % (32.0-36.0); MEAN PLATELET VOLUME 7.3 FL (7.0-11.0); MONO % 9.9 % (0.0-8.0); MONOCYTE # 1.8 TH/MM3 (0-0.9); NEUT % 75.5 % (16.0-70.0); PLATELET COUNT 715 TH/MM3 (150-450); RED BLOOD COUNT 3.53 MIL/MM3 (4.50-5.90); RED CELL DISTRIBUTION WIDTH 21.3 % (11.6-17.2)
[2017-12-23] MEDS: QUEtiapine FUMARATE 25 MG TAB PO SCH ×2 (09:54→13:16)
[2017-12-23 10:13] LABS: BICARBONATE 29.2 MEQ/L (21.0-32.0); CALCIUM 8.5 MG/DL (8.5-10.1); CREATININE 0.78 MG/DL (0.60-1.30)
[2017-12-23 10:40] LABS: BANDS 1 % (0-6); BASOPHILS 2 % (0-2); LYMPHOCYTES 7 % (9-44); METAMYELOCYTES 1 % (0-1); MONOCYTES 7 % (0-8); MYELOCYTES 1 % (0-0); NEUTROPHIL # MANUAL DIFF 14.9 TH/MM3 (1.8-7.7); POLYS (SEG NEUTROPHILS) 80 % (16-70)
[2017-12-23 10:41] LABS: KERATOCYTES OCC (NORMAL); TOXIC GRANULATION 1+ (NORMAL)
[2017-12-23 12:00] VITALS: BP 130/79; PULSE 97; RESP 17; TEMP 98.9; O2SAT 96
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
[2017-12-23 16:00] VITALS: BP 122/78; PULSE 110; RESP 17; TEMP 97.6; O2SAT 95
--- NOTE | 2017-12-23 18:58 | RADRPT ---
EXAM DATE/TIME: 12/23/2017 18:40 [facility] COMPARISON: CT THORAX W/O CONTRAST, December 15, 2017, 9:05. INDICATIONS : Fevers, s/p thoracotomy. RADIATION DOSE: 8.23 CTDIvol (mGy) MEDICAL HISTORY : Hypertension. SURGICAL HISTORY : Tonsillectomy. ENCOUNTER: Subsequent ACUITY: 1 week PAIN SCALE: 4/10 LOCATION: Bilateral chest TECHNIQUE: Volumetric scanning of the chest was performed. Using automated exposure control and adjustment of t he mA and/or kV according to patient size, radiation dose was kept as low as reasonably achievable to obtain optimal diagnostic quality images. DICOM format image data is available electronically for r eview and comparison. Follow-up recommendations for detected pulmonary nodules are based at a minimum on nodule size and pa tient risk factors according to Fleischner Society Guidelines. FINDINGS: There is a hydropneumothorax on the right again seen. Patchy scattered infiltrates in the left upper lobe are noted, and there is patchy consolidation in the right lower lobe, overall significantly impr lynn from the previous study. Cholelithiasis is noted. Coronary artery calcification is seen. Posttho racotomy changes are seen involving the right ribs with numerous fractures identified. There is subcu taneous air along the right lateral lower chest. There is enlargement of the right lateral thoracic m usculature with a few small locules of air seen in the region of the ninth and eighth as well as 10th and eighth rib interspaces. On axial image 38% wall there is clear asymmetry on the right as compare d to the left with enlargement of the lateral thoracic musculature measuring 11.3 x 3.3 cm in AP and transverse dimension. A complex fluid collection such as an abscess is not excluded. CONCLUSION: Improved aeration of right lung. Right sided hydropneumothorax is decreased in size in the previous s tudy post thoracotomy. There is abnormal enlargement versus ill-defined soft tissue density in the ri ght lateral thoracic soft tissues, and abscess is not excluded. Hematoma is also a consideration. Levi Calvert MD on December 23, 2017 at 18:53 Board Certified Radiologist. This report was verified electronically.
[2017-12-23 20:38] VITALS: BP 124/78; PULSE 101; RESP 20; TEMP 97.3; O2SAT 96
[2017-12-23] MEDS: QUEtiapine FUMARATE 100 MG TAB PO SCH (21:30)
[2017-12-24 00:37] VITALS: BP 136/73; PULSE 113; RESP 20; TEMP 98.9; O2SAT 96
[2017-12-24] MEDS: MORPHINE SULFATE 4 MG/ML INJ IV PUSH PRN ×2 (00:49→06:17)
[2017-12-24] MEDS: HALOPERIDOL LACTATE 5 MG/ML AMP IV PRN (01:22)
[2017-12-24] MEDS: METHOCARBAMOL 500 MG TAB PO SCH ×3 (06:16→23:05)
[2017-12-24 08:00] VITALS: BP 139/79; PULSE 107; RESP 19; TEMP 99.5; O2SAT 96
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
[2017-12-24] MEDS: POLYETHYLENE GLYCOL 17 GM PKG PO SCH (09:00)
[2017-12-24] MEDS: GABAPENTIN 300 MG CAP PO SCH ×3 (09:15→17:36)
[2017-12-24] MEDS: ENOXAPARIN SODIUM 30 MG/0.3 ML SYRINGE SQ SCH ×2 (09:15→23:05)
[2017-12-24] MEDS: DOCUSATE SODIUM 50 MG/SENNA 8.6 MG TAB PO SCH ×2 (09:16→21:00)
[2017-12-24] MEDS: LIDOCAINE HCL 5% PATCH T-DERMAL SCH (09:17)
[2017-12-24] MEDS: POTASSIUM CHLORIDE 20 MEQ CONTROLLED RELEASE TAB PO SCH (09:18)
[2017-12-24] MEDS: QUEtiapine FUMARATE 25 MG TAB PO SCH ×2 (09:19→14:21)
[2017-12-24 12:00] VITALS: BP 105/70; PULSE 100; RESP 20; TEMP 98.7; O2SAT 95
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
[2017-12-24 14:12] LABS: HEMATOCRIT 26.2 % (39.0-51.0); HEMOGLOBIN 8.3 GM/DL (13.0-17.0); MEAN CELL VOLUME 76.4 FL (80.0-100.0); MEAN CORPUSCULAR HEMOGLOBIN 24.2 PG (27.0-34.0); MEAN CORPUSCULAR HGB CONC 31.7 % (32.0-36.0); MEAN PLATELET VOLUME 7.5 FL (7.0-11.0); PLATELET COUNT 751 TH/MM3 (150-450); RED BLOOD COUNT 3.43 MIL/MM3 (4.50-5.90); RED CELL DISTRIBUTION WIDTH 21.1 % (11.6-17.2); WHITE BLOOD COUNT 16.9 TH/MM3 (4.0-11.0)
[2017-12-24 14:13] LABS: INTERNATIONAL NORMALIZED RATIO 1.1 RATIO; PROTHROMBIN TIME - PATIENT 11.4 SEC (9.8-11.6)
[2017-12-24] MEDS: cefTRIAXone INJ 1,000 MG in SODIUM CHLORIDE 0.9% INJ 100 ML IV SCH (15:25)
[2017-12-24 18:00] VITALS: BP 121/81; PULSE 113; RESP 19; TEMP 97.7; O2SAT 95
[2017-12-24 20:00] VITALS: BP 118/80; PULSE 104; RESP 18; TEMP 98.6; O2SAT 94
[2017-12-24] MEDS: QUEtiapine FUMARATE 100 MG TAB PO SCH (23:05)
[2017-12-25] VITALS: BP 123/71; PULSE 104; RESP 18; TEMP 98.2; O2SAT 96
[2017-12-25] MEDS: cefTRIAXone INJ 1,000 MG in SODIUM CHLORIDE 0.9% INJ 100 ML IV SCH (03:48)
[2017-12-25] MEDS: HALOPERIDOL LACTATE 5 MG/ML AMP IV PRN (05:47)
[2017-12-25] MEDS: METHOCARBAMOL 500 MG TAB PO SCH ×3 (05:47→23:38)
[2017-12-25 08:00] VITALS: BP 141/83; PULSE 87; RESP 19; TEMP 97.8; O2SAT 96
[2017-12-25] MEDS: QUEtiapine FUMARATE 25 MG TAB PO SCH ×2 (08:00→14:40)
[2017-12-25] MEDS: POTASSIUM CHLORIDE 20 MEQ CONTROLLED RELEASE TAB PO SCH (08:21)
[2017-12-25] MEDS: GABAPENTIN 300 MG CAP PO SCH ×3 (08:22→17:46)
[2017-12-25] MEDS: ENOXAPARIN SODIUM 30 MG/0.3 ML SYRINGE SQ SCH ×2 (08:22→23:39)
[2017-12-25] MEDS: POLYETHYLENE GLYCOL 17 GM PKG PO SCH (08:22)
[2017-12-25] MEDS: LIDOCAINE HCL 5% PATCH T-DERMAL SCH (08:22)
[2017-12-25] MEDS: DOCUSATE SODIUM 50 MG/SENNA 8.6 MG TAB PO SCH ×2 (08:22→21:00)
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
[2017-12-25] MEDS ORDERED: THIAMINE INJ 500 MG in SODIUM CHLORIDE 0.9% INJ 100 ML IV ONE ×2 (09:15→10:00)
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
[2017-12-25] MEDS: LEVOFLOXACIN 750 MG TAB PO SCH ×2 (10:00→10:01)
--- NOTE | 2017-12-25 10:00 | RADRPT ---
EXAM DATE/TIME: 12/25/2017 09:38 [facility] COMPARISON: CHEST SINGLE AP, December 22, 2017, 2:57. CT THORAX W/O CONTRAST, December 23, 2017, 18:40. INDICATIONS : Pneumonia. Patient complains of right sided chest pain. MEDICAL HISTORY : None. SURGICAL HISTORY : None. ENCOUNTER: Subsequent ACUITY: 2 weeks PAIN SCORE: 7/10 LOCATION: Right chest FINDINGS: Postoperative features of right-sided thoracotomy with persistent small right sided hydropneumothorax . Mild airspace disease at the right lung base. Cardiomediastinal contours are stable. Remainder of e xam is unchanged. CONCLUSION: 1. Stable postoperative features of right-sided thoracotomy with stable small right-sided hydropneumo thorax and mild airspace disease at the right lung base, presumably atelectasis. Jero Reddy MD on December 25, 2017 at 9:55 Board Certified Radiologist. This report was verified electronically.
[2017-12-25] MEDS: metroNIDAZOLE 500 MG TAB PO SCH ×3 (10:01→23:38)
[2017-12-25] MEDS: CEFAZOLIN INJ 2,000 MG in SODIUM CHLORIDE 0.9% INJ 100 ML IV SCH ×2 (10:02→17:46)
[2017-12-25 10:58] LABS: AUTOMATED NEUTROPHIL # 9.7 TH/MM3 (1.8-7.7); BASOPHIL # 0.2 TH/MM3 (0-0.2); BASOPHIL % 1.2 % (0.0-2.0); EOSINOPHIL # 0.2 TH/MM3 (0-0.4); EOSINOPHIL % 1.1 % (0.0-4.0); HEMATOCRIT 23.3 % (39.0-51.0); HEMOGLOBIN 7.5 GM/DL (13.0-17.0); LYMPH % 11.8 % (9.0-44.0); LYMPHOCYTE # 1.6 TH/MM3 (1.0-4.8); MEAN CELL VOLUME 76.3 FL (80.0-100.0); MEAN CORPUSCULAR HEMOGLOBIN 24.7 PG (27.0-34.0); MEAN CORPUSCULAR HGB CONC 32.3 % (32.0-36.0); MEAN PLATELET VOLUME 7.5 FL (7.0-11.0); MONOCYTE # 1.7 TH/MM3 (0-0.9); NEUT % 72.9 % (16.0-70.0); PLATELET COUNT 790 TH/MM3 (150-450); RED BLOOD COUNT 3.05 MIL/MM3 (4.50-5.90); RED CELL DISTRIBUTION WIDTH 21.1 % (11.6-17.2); WHITE BLOOD COUNT 13.3 TH/MM3 (4.0-11.0)
[2017-12-25 11:06] LABS: ALBUMIN 2.3 GM/DL (3.4-5.0); AST (GOT) 94 U/L (15-37); BICARBONATE 26.8 MEQ/L (21.0-32.0); BLOOD UREA NITROGEN 6 MG/DL (7-18); CALCIUM 8.7 MG/DL (8.5-10.1); CHLORIDE 101 MEQ/L (98-107); CREATININE 0.82 MG/DL (0.60-1.30); GLOMERULAR FILTRATION RATE 100 ML/MIN (>89); GLUCOSE,RANDOM 110 MG/DL (74-106); SODIUM (NA) 137 MEQ/L (136-145)
[2017-12-25 11:10] LABS: ALKALINE PHOSPHATASE 242 U/L (45-117); ALT (GPT) 59 U/L (12-78); TOTAL BILIRUBIN ADULT 0.5 MG/DL (0.2-1.0); TOTAL PROTEIN 8.3 GM/DL (6.4-8.2)
[2017-12-25 12:00] VITALS: BP 124/81; PULSE 101; RESP 18; TEMP 98; O2SAT 100
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
[2017-12-25 16:00] VITALS: BP 120/81; PULSE 106; RESP 17; TEMP 98.7; O2SAT 97
[2017-12-25 20:00] VITALS: BP 127/77; PULSE 90; RESP 18; TEMP 98.6; O2SAT 96
[2017-12-25] MEDS: QUEtiapine FUMARATE 100 MG TAB PO SCH (23:37)
[2017-12-26] MEDS: CEFAZOLIN INJ 2,000 MG in SODIUM CHLORIDE 0.9% INJ 100 ML IV SCH ×3 (02:25→17:18)
[2017-12-26] MEDS: METHOCARBAMOL 500 MG TAB PO SCH ×3 (05:55→23:25)
[2017-12-26] MEDS: metroNIDAZOLE 500 MG TAB PO SCH ×3 (05:55→23:25)
[2017-12-26 08:00] VITALS: BP 123/80; PULSE 105; RESP 20; TEMP 98.9; O2SAT 99
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
[2017-12-26] MEDS: ENOXAPARIN SODIUM 30 MG/0.3 ML SYRINGE SQ SCH ×2 (08:17→23:25)
[2017-12-26] MEDS: LIDOCAINE HCL 5% PATCH T-DERMAL SCH (08:18)
[2017-12-26] MEDS: POLYETHYLENE GLYCOL 17 GM PKG PO SCH (08:19)
[2017-12-26] MEDS: DOCUSATE SODIUM 50 MG/SENNA 8.6 MG TAB PO SCH ×2 (08:19→21:00)
[2017-12-26] MEDS: GABAPENTIN 300 MG CAP PO SCH ×3 (08:20→17:18)
[2017-12-26] MEDS: POTASSIUM CHLORIDE 20 MEQ CONTROLLED RELEASE TAB PO SCH (08:20)
[2017-12-26] MEDS: QUEtiapine FUMARATE 25 MG TAB PO SCH ×2 (08:23→12:39)
[2017-12-26] MEDS: LEVOFLOXACIN 750 MG TAB PO SCH (11:16)
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
[2017-12-26 12:00] VITALS: BP 106/69; PULSE 100; RESP 19; TEMP 98.1; O2SAT 94
[2017-12-26 16:00] VITALS: BP 130/81; PULSE 97; RESP 18; TEMP 98.4; O2SAT 93
[2017-12-26] MEDS: ONDANSETRON HCL 4 MG/2 ML VIAL IV PUSH PRN (18:05)
[2017-12-26 20:00] VITALS: BP 137/83; PULSE 104; RESP 20; TEMP 99.4; O2SAT 96
[2017-12-26] MEDS: QUEtiapine FUMARATE 100 MG TAB PO SCH (23:24)
[2017-12-27] VITALS: BP 126/77; PULSE 97; RESP 20; TEMP 98; O2SAT 96
[2017-12-27] MEDS: CEFAZOLIN INJ 2,000 MG in SODIUM CHLORIDE 0.9% INJ 100 ML IV SCH ×2 (01:37→09:33)
[2017-12-27] MEDS: MORPHINE SULFATE 4 MG/ML INJ IV PUSH PRN ×2 (01:45→09:42)
[2017-12-27 05:25] LABS: AUTOMATED NEUTROPHIL # 9.1 TH/MM3 (1.8-7.7); BASOPHIL # 0.2 TH/MM3 (0-0.2); BASOPHIL % 1.2 % (0.0-2.0); EOSINOPHIL # 0.1 TH/MM3 (0-0.4); HEMATOCRIT 23.5 % (39.0-51.0); HEMOGLOBIN 7.3 GM/DL (13.0-17.0); LYMPH % 16.6 % (9.0-44.0); LYMPHOCYTE # 2.2 TH/MM3 (1.0-4.8); MEAN CELL VOLUME 77.7 FL (80.0-100.0); MEAN CORPUSCULAR HEMOGLOBIN 24.2 PG (27.0-34.0); MEAN CORPUSCULAR HGB CONC 31.2 % (32.0-36.0); MEAN PLATELET VOLUME 7.6 FL (7.0-11.0); MONO % 12.2 % (0.0-8.0); MONOCYTE # 1.6 TH/MM3 (0-0.9); PLATELET COUNT 761 TH/MM3 (150-450); RED BLOOD COUNT 3.02 MIL/MM3 (4.50-5.90); RED CELL DISTRIBUTION WIDTH 21.3 % (11.6-17.2); WHITE BLOOD COUNT 13.2 TH/MM3 (4.0-11.0)
[2017-12-27 05:51] LABS: CALCIUM 8.3 MG/DL (8.5-10.1); CREATININE 0.9 MG/DL (0.60-1.30)
[2017-12-27] MEDS: METHOCARBAMOL 500 MG TAB PO SCH ×2 (06:20→13:33)
[2017-12-27] MEDS: metroNIDAZOLE 500 MG TAB PO SCH ×2 (06:20→13:32)
--- NOTE | 2017-12-27 06:59 | RADRPT ---
EXAM DATE/TIME: 12/27/2017 06:10 [place] COMPARISON: CHEST PA & LAT, December 25, 2017, 9:38. INDICATIONS : Short of breath, follow up trauma and small right side pneumothorax MEDICAL HISTORY : None. SURGICAL HISTORY : None. ENCOUNTER: Subsequent ACUITY: 2 weeks PAIN SCORE: 0/10 LOCATION: Bilateral chest FINDINGS: Chest is stable in appearance. A tiny rounded focus of gas lucency seen in the apex is unchanged. A f ull rib deformities. Lateral skin yina. Left lung is stable and clear. Cardiac contours are unchan ged. CONCLUSION: Stable chest appearance. Ehsan Shannon MD on December 27, 2017 at 6:56 Board Certified Radiologist. This report was verified electronically.
[2017-12-27] MEDS ORDERED: POLY17S PO (07:40)
[2017-12-27] MEDS ORDERED: PERI PO (07:40)
[2017-12-27 08:00] VITALS: BP 122/76; PULSE 93; RESP 17; TEMP 97.4; O2SAT 95
[2017-12-27] MEDS: GABAPENTIN 300 MG CAP PO SCH ×2 (08:12→12:21)
[2017-12-27] MEDS: POTASSIUM CHLORIDE 20 MEQ CONTROLLED RELEASE TAB PO SCH (08:12)
[2017-12-27] MEDS: DOCUSATE SODIUM 50 MG/SENNA 8.6 MG TAB PO SCH (08:12)
[2017-12-27] MEDS: POLYETHYLENE GLYCOL 17 GM PKG PO SCH (08:12)
[2017-12-27] MEDS: ENOXAPARIN SODIUM 30 MG/0.3 ML SYRINGE SQ SCH (08:13)
[2017-12-27] MEDS: LIDOCAINE HCL 5% PATCH T-DERMAL SCH (08:13)
[2017-12-27] MEDS: QUEtiapine FUMARATE 25 MG TAB PO SCH ×2 (08:18→13:33)
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
[2017-12-27] MEDS: LEVOFLOXACIN 750 MG TAB PO SCH (09:33)
[2017-12-27] MEDS: ONDANSETRON HCL 4 MG/2 ML VIAL IV PUSH PRN (09:41)
[2017-12-27] MEDS ORDERED: THIA100 PO (09:50)
[2017-12-27] MEDS ORDERED: CEPH-460 PO (09:50)
[2017-12-27] MEDS ORDERED: PERC5TAB12 PO (10:58)
[2017-12-27] MEDS ORDERED: NEUR300C PO (11:01)
[2017-12-27] MEDS ORDERED: SERO25TA PO (11:01)
[2017-12-27] MEDS ORDERED: METH500T3 PO (11:01)
[2017-12-27 12:00] VITALS: BP 108/67; PULSE 105; RESP 18; TEMP 99.1; O2SAT 97
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
== END 2017-12-27 14:55 | disposition home or self-care (01) | DRG 163 ==
LOC: NED 11:57 → UNDOADMIN 16:16 → NEDA 16:16 → NEDH 20:22 → NEDA 20:22 → NEDH 20:40 → INTOOBSV 20:40 → OBSVTOIN 12-11 05:25 → N05A 12-11 16:15 → N03A 12-14 19:33 → N07A 12-20 00:55
PROVIDERS: ADMIT Surgery; ATTEND Surgery
PROC: 0W9930Z Drainage of Right Pleural Cavity with Drainage Device, Percutaneous Approach (ICD-10-PCS; 2017-12-10)
PROC: 0W9930Z Drainage of Right Pleural Cavity with Drainage Device, Percutaneous Approach (ICD-10-PCS; 2017-12-13)
PROC: 0W9930Z Drainage of Right Pleural Cavity with Drainage Device, Percutaneous Approach (ICD-10-PCS; 2017-12-14)
PROC: 0BJK4ZZ Inspection of Right Lung, Percutaneous Endoscopic Approach (ICD-10-PCS; 2017-12-17)
PROC: 0BCN0ZZ Extirpation of Matter from Right Pleura, Open Approach (ICD-10-PCS; 2017-12-17)
PROC: 0BNK0ZZ Release Right Lung, Open Approach (ICD-10-PCS; principal; 2017-12-17 12:53)
DX: S27.2XXA Traumatic hemopneumothorax, initial encounter (principal); J86.9 Pyothorax without fistula; J69.0 Pneumonitis due to inhalation of food and vomit; A41.9 Sepsis, unspecified organism; G93.41 Metabolic encephalopathy; F10.221 Alcohol dependence with intoxication delirium; F10.231 Alcohol dependence with withdrawal delirium; S22.41XA Multiple fractures of ribs, right side, initial encounter for closed fracture; F10.24 Alcohol dependence with alcohol-induced mood disorder; S27.321A Contusion of lung, unilateral, initial encounter; J90 Pleural effusion, not elsewhere classified; W03.XXXA Other fall on same level due to collision with another person, initial encounter; K21.9 Gastro-esophageal reflux disease without esophagitis; F41.9 Anxiety disorder, unspecified; Y90.8 Blood alcohol level of 240 mg/100 ml or more; G47.00 Insomnia, unspecified; F01.50 Vascular dementia, unspecified severity, without behavioral disturbance, psychotic disturbance, mood disturbance, and anxiety; R06.82 Tachypnea, not elsewhere classified; F02.80 Dementia in other diseases classified elsewhere, unspecified severity, without behavioral disturbance, psychotic disturbance, mood disturbance, and anxiety; K80.20 Calculus of gallbladder without cholecystitis without obstruction; Z78.1 Physical restraint status; Z87.820 Personal history of traumatic brain injury; Z53.31 Laparoscopic surgical procedure converted to open procedure
CPT/HCPCS: 32551; 32557; 36600; 71045; 71046; 71101; 71250; 74177; 80048; 80053; 80202; 80307; 81001; 82140; 82805; 83690; 85007; 85025; 85027; 85610; 85730; 86140; 86403; 86850; 86900; 86901; 86920; 87015; 87070; 87102; 87116; 87147; 87186; 87205; 87206; 88304; 88305; 94150; 96361; 96374; 96375; 96376; 99152; 99153; C1729; C1769; J0131; J0690; J0696; J1100; J1170; J1580; J1630; J1650; J1885; J2060; J2250; J2270; J2370; J2405; J2710; J3010; J3370; J3411; J7030; J7040; J7050; J7120; Q9967

== ENCOUNTER 2018-01-03 16:07 | Emergency (ER) | payer SELFPAY ==
[~2018-01-03] VITALS: Ht 167.6 cm; Wt 70.0 kg
[~2018-01-03 16:07] MED LIST changes: +CEPH-460 PO; +METH500T3 PO; +NEUR300C PO; +PERC5TAB12 PO; +PERI PO; +POLY17S PO; +SERO25TA PO
[2018-01-03 16:13] VITALS: BP 116/74; PULSE 95; RESP 16; TEMP 98.1; O2SAT 99
[2018-01-04] MEDS ORDERED: MOBI15TA PO (15:11)
[2018-01-04] MEDS ORDERED: ROBA750T PO (15:11)
== END 2018-01-03 21:43 | disposition left against medical advice (07) ==
LOC: NED 16:07
DX: Z03.89 Encounter for observation for other suspected diseases and conditions ruled out (principal)
CPT/HCPCS: 99281

== ENCOUNTER 2018-01-04 14:40 | Emergency (ER) | payer SELFPAY ==
[~2018-01-04] VITALS: Ht 167.6 cm; Wt 72.1 kg
[2018-01-04 14:43] VITALS: BP 117/69; PULSE 100; RESP 18; TEMP 97.5; O2SAT 99
[2018-01-04] MEDS ORDERED: ROBA750T PO (15:11)
[2018-01-04] MEDS ORDERED: MOBI15TA PO (15:11)
--- NOTE | 2018-01-04 15:11 | PD ---
HPI Chief Complaint: Wound/Suture/Staple Re-Check Time Seen by Provider: 14:51 Travel History International Travel<30 days: No Contact w/Intl Traveler<30days: No Traveled to known affect area: No History of Present Illness HPI 47-year-old male complains of persistent pain on the right chest wall. Patient has history of multiple right rib fractures status post chest tube placement and right thoracotomy for evacuation of empyema. patient was discharged from the hospital December 27, 2017. Patient states that has persistent pain on the right chest wall. Patient states that he finished his oxycodone for pain. Patient states that he has low-grade fever at home. Patient states her pain is sharp pain localized the right chest wall around the incisional area. Patient states that he has occasional clear drainage from the wound. Patient denies any shortness of breath. Patient denies any coughing congestion. PFSH Past Medical History Anemia: Yes Arthritis: No Blood Disorders: Yes Anxiety: Yes Depression: Yes Heart Rhythm Problems: No Cancer: No Cardiovascular Problems: Yes High Cholesterol: No Chest Pain: No Congestive Heart Failure: No Cerebrovascular Accident: No Diabetes: No Diminished Hearing: No Endocrine: No GERD: Yes Genitourinary: No Immune Disorder: No Musculoskeletal: Yes Neurologic: Yes Psychiatric: Yes Reproductive: No Respiratory: No Migraines: No Seizures: Yes Past Surgical History Appendectomy: Yes Tonsillectomy: Yes Other Surgery: Yes (appendectomy, PIELNIDOL CYST REMOVED) Social History Alcohol Use: Yes (EVERY OTHER DAY) Tobacco Use: No Substance Use: Yes Allergies-Medications (Allergen,Severity, Reaction): Coded Allergies: lansoprazole (Unverified Allergy, Intermediate, 01/04/18) omeprazole (Unverified Allergy, Intermediate, 01/04/18) pantoprazole (Unverified Allergy, Intermediate, 01/04/18) Proton Pump Inhibitors (Verified Allergy, Unknown, 01/04/18) Reported Meds & Prescriptions Reported Meds & Active Scripts Active Seroquel (Quetiapine Fumarate) 25 Mg Tab 75 Mg PO TID 14 Days Neurontin (Gabapentin) 300 Mg Cap 300 Mg PO TID Methocarbamol 500 Mg Tab 500 Mg PO Q8HR Percocet (Oxycodone-Acetaminophen) 5-325 mg Tab 1 Tab PO Q6H PRN Keflex (Cephalexin) 500 Mg Cap 500 Mg PO Q8H 7 Days Polyethylene Glycol 3350 Powder (Polyethylene Glycol) 17 Gram Pow 17 Gm PO DAILY 5 Days Reported Zolpidem (Zolpidem Tartrate) 10 Mg Tab 10 Mg PO HS PRN Multi-Vitamin Daily (Multiple Vitamin) 1 Tab Tab 1 Tab PO DAILY Review of Systems General / Constitutional: No: Fever Eyes: No: Visual changes HENT: No: Headaches Cardiovascular: Positive: Chest Pain or Discomfort Respiratory: No: Shortness of Breath Gastrointestinal: No: Abdominal Pain Genitourinary: No: Dysuria Musculoskeletal: No: Pain Skin: No Rash Neurologic: No: Weakness Psychiatric: No: Depression Endocrine: No: Polydipsia Hematologic/Lymphatic: No: Easy Bruising Physical Exam Narrative GENERAL: Well-nourished, well-developed patient. SKIN: Focused skin assessment warm/dry. HEAD: Normocephalic. EYES: No scleral icterus. No injection or drainage. NECK: Supple, trachea midline. No JVD or lymphadenopathy. CARDIOVASCULAR: Regular rate and rhythm without murmurs, gallops, or rubs. RESPIRATORY: Breath sounds equal bilaterally. No accessory muscle use. GASTROINTESTINAL: Abdomen soft, non-tender, nondistended. MUSCULOSKELETAL: No cyanosis, or edema. BACK: Nontender without obvious deformity. No CVA tenderness. The wound on the right chest wall Is healing well. Frank in place. No discharge no redness or swelling noted. Breath sounds equal bilaterally. Data Data Last Documented VS Vital Signs Date Time Temp Pulse Resp B/P (MAP) Pulse Ox O2 Delivery O2 Flow Rate FiO2 01/04/18 14:43 97.5 100 18 117/69 (85) 99 MDM Medical Decision Making Medical Screen Exam Complete: Yes Emergency Medical Condition: Yes Differential Diagnosis Differential diagnosis including wound check, wound infection. Narrative Course 47-year-old male with right-sided chest wall pain. History of multiple right rib fracture status post chest tube placement and thoracotomy for evacuation of empyema. Patient doing well. Vital signs stable. Patient afebrile. Wound healing well. Diagnosis Primary Impression: Visit for wound check Patient Instructions: General Instructions Additional Instructions: Mobic and Robaxin as needed for pain. Follow-up with personal physician as scheduled for staple removal. Return if worse. Med/Other Pt SpecificInfo: Prescription(s) given Scripts Methocarbamol (Robaxin) 750 Mg Tab 750 MG PO QID for Muscle Spasm, #60 TAB 0 Refills Prov: Eliseo Vigil MD 01/04/18 Meloxicam (Mobic) 15 Mg Tab 15 MG PO DAILY for Pain, #30 TAB 0 Refills Prov: Eliseo Vigil MD 01/04/18 Disposition: 01 DISCHARGE HOME Condition: Stable Eliseo Vigil MD Jan 04, 2018 15:11
== END 2018-01-04 15:20 | disposition home or self-care (01) ==
LOC: PHED 14:40
DX: Z48.00 Encounter for change or removal of nonsurgical wound dressing (principal); R07.89 Other chest pain; K21.9 Gastro-esophageal reflux disease without esophagitis; F32.9 Major depressive disorder, single episode, unspecified; Z98.890 Other specified postprocedural states; Z88.8 Allergy status to other drugs, medicaments and biological substances; Z79.899 Other long term (current) drug therapy
CPT/HCPCS: 99283